=== PATIENT | female | born 1950 | race Caucasian/White ===

== ENCOUNTER 2017-01-23 00:53 | Observation (INO) | payer MEDICARE ==
[~2017-01-23] VITALS: Ht 170.2 cm; Wt 73.0 kg
[2017-01-23] VITALS (12 sets, daily range): BP systolic 119–216; BP diastolic 56–97; PULSE 66–86; RESP 15–22; TEMP 97.9–98.8; O2SAT 95–100
[2017-01-23] MEDS ORDERED: ASPI81CH37 CHEW (01:06)
[2017-01-23] MEDS ORDERED: CYCL1TAB29 PO (01:11)
[2017-01-23] MEDS ORDERED: MELO7.5T4 PO (01:11)
[2017-01-23] MEDS ORDERED: METF1000 PO (01:11)
[2017-01-23] MEDS ORDERED: LOSA100T3 PO (01:11)
[2017-01-23] MEDS ORDERED: GLIP5TAB8 PO (01:11)
[2017-01-23] MEDS ORDERED: CARV25TA PO (01:11)
[2017-01-23] MEDS ORDERED: LEVO100T5 PO (01:11)
[2017-01-23] MEDS ORDERED: OMEP20TA PO (01:11)
[2017-01-23] MEDS ORDERED: CELE40TA PO (01:11)
[2017-01-23] MEDS ORDERED: LEVEMIR SQ (01:11)
[2017-01-23] MEDS ORDERED: hydrALAZINE HCL 20 MG/ML VIAL IV PUSH ONE (01:30)
[2017-01-23] MEDS ORDERED: SODIUM CHLORIDE 0.9% FLUSH 10 ML FLUSH IVF PRN (01:30)
[2017-01-23] MEDS ORDERED: ASPIRIN 81 MG CHEW TAB PO ONE (01:30)
[2017-01-23] MEDS: NITROGLYCERIN 0.4 MG SL 25 TABS/BTL SL SCH ×3 (01:40→02:00)
[2017-01-23 01:53] LABS: AUTOMATED NEUTROPHIL # 3.9 TH/MM3 (1.8-7.7); BASOPHIL # 0.1 TH/MM3 (0-0.2); BASOPHIL % 0.9 % (0.0-2.0); EOSINOPHIL # 0.2 TH/MM3 (0-0.4); EOSINOPHIL % 2.7 % (0.0-4.0); HEMATOCRIT 36.2 % (35.0-46.0); HEMO FLAGS DIFF FINAL; LYMPH % 28.2 % (9.0-44.0); LYMPHOCYTE # 1.9 TH/MM3 (1.0-4.8); MEAN CELL VOLUME 83.2 FL (80.0-100.0); MEAN CORPUSCULAR HEMOGLOBIN 29.3 PG (27.0-34.0); MEAN CORPUSCULAR HGB CONC 35.2 % (32.0-36.0); MONO % 11.2 % (0.0-8.0); PLATELET COUNT 239 TH/MM3 (150-450); RED BLOOD COUNT 4.36 MIL/MM3 (4.00-5.30); RED CELL DISTRIBUTION WIDTH 14.7 % (11.6-17.2); WHITE BLOOD COUNT 6.8 TH/MM3 (4.0-11.0)
--- NOTE | 2017-01-23 02:00 | RADRPT ---
EXAM DATE/TIME: 01/23/2017 01:35 [place] COMPARISON: No previous studies available for comparison. INDICATIONS : LEFT SIDE CHEST AND ARM PAIN RADIATING TO JAW X 3 DAYS. MEDICAL HISTORY : Hypertension. Hypercholesterolemia. Diabetes mellitus type II. SURGICAL HISTORY : Thyroidectomy ENCOUNTER: Initial ACUITY: 3 days PAIN SCORE: 8/10 LOCATION: Bilateral chest FINDINGS: A single view of the chest demonstrates the lungs to be symmetrically aerated without evidence of mas s, infiltrate or effusion. The cardiomediastinal contours are unremarkable. Osseous structures are intact. CONCLUSION: No acute disease. Niranjan Black MD on January 23, 2017 at 1:57 Board Certified Radiologist. This report was verified electronically.
[2017-01-23 02:31] LABS: APTT (PATIENT) 24.9 SEC (24.3-30.1); INTERNATIONAL NORMALIZED RATIO 0.9 RATIO; PROTHROMBIN TIME - PATIENT 10.3 SEC (9.8-11.6)
[2017-01-23 03:00] LABS: ALT (GPT) 36 U/L (10-53); ANION GAP 11 MEQ/L (5-15); AST (GOT) 24 U/L (15-37); BICARBONATE 27.4 MEQ/L (21.0-32.0); BLOOD UREA NITROGEN 13 MG/DL (7-18); CHLORIDE 100 MEQ/L (98-107); GLOMERULAR FILTRATION RATE 75 ML/MIN (>89); MAGNESIUM 1.8 MG/DL (1.5-2.5); POTASSIUM 3.5 MEQ/L (3.5-5.1); SODIUM (NA) 138 MEQ/L (136-145)
[2017-01-23 03:01] LABS: ALKALINE PHOSPHATASE 115 U/L (45-117); CREATINE KINASE 102 U/L (26-192); TOTAL BILIRUBIN ADULT 0.3 MG/DL (0.2-1.0)
[2017-01-23] MEDS ORDERED: INSULIN HUMAN REGULAR 1,000 UNITS/10 ML VIAL SQ ONE (03:30)
--- NOTE | 2017-01-23 03:33 | PD ---
HPI Chief Complaint: Chest Pain Time Seen by Provider: 01:30 Travel History International Travel<30 days: No Contact w/Intl Traveler<30days: No Traveled to known affect area: No History of Present Illness HPI Patient is a 66-year-old female with history of hypertension, diabetes, presents to emergency room complaints of chest pain. Reports that she has had left-sided chest pain which radiates her arm and her jaw, reports the chest pain is sharp and stabbing in nature. Patient reports that she is feeling nauseous this with no vomiting. Denies any shortness of breath. Patient also reports that she does have history of hypertension and is on multiple medications, she did not take any of her medications today. PFSH Past Medical History Cardiac Catheterization: Yes (X2) Cardiovascular Problems: Yes High Cholesterol: Yes Diabetes: Yes Patient Takes Glucophage: Yes (01/22/17) Hypertension: Yes Thyroid Disease: Yes Triglycerides - High: Yes Tetanus Vaccination: < 5 Years Influenza Vaccination: Yes ?: Not Menopausal: Yes : 4 Para: 4 Past Surgical History Eye Surgery: Yes (BILATERAL CATARACTS) Oral Surgery: Yes (JAW) Other Surgery: Yes (PARTIAL THYRIOIDECTOMY) Social History Alcohol Use: No Tobacco Use: No Substance Use: No Allergies-Medications (Allergen,Severity, Reaction): Coded Allergies: Penicillin (Verified Allergy, Unknown, 01/23/17) Reported Meds & Prescriptions Reported Meds & Active Scripts Active Reported Levemir Inj (Insulin Detemir) 1,000 unit/ 10 ML Vial 50 Units SQ HS Do not mix with any other Insulin. Carvedilol 25 Mg Tab 25 Mg PO BID Flexeril (Cyclobenzaprine HCl) 10 Mg Tab 10 Mg PO BID Omeprazole 20 Mg Tab 20 Mg PO BID Losartan-Hydrochlorothiazide 100-12.5 Mg Tab 1 Tab PO DAILY Levothyroxine (Levothyroxine Sodium) 100 Mcg Tab 100 Mcg PO DAILY Glipizide 5 Mg Tab 5 Mg PO BIDAC Take 30 minutes before a meal Celexa (Citalopram Hydrobromide) 40 Mg Tab 40 Mg PO DAILY Metformin (Metformin HCl) 1,000 Mg Tab 1,000 Mg PO BIDPC With meals Aspirin Low Dose (Aspirin) 81 Mg Chew 81 Mg CHEW DAILY Review of Systems General / Constitutional: No: Fever Eyes: No: Visual changes HENT: No: Headaches Cardiovascular: Positive: Chest Pain or Discomfort Respiratory: No: Shortness of Breath Gastrointestinal: No: Abdominal Pain Genitourinary: No: Dysuria Musculoskeletal: No: Pain Skin: No Rash Neurologic: No: Weakness Psychiatric: No: Depression Endocrine: No: Polydipsia Hematologic/Lymphatic: No: Easy Bruising Physical Exam Narrative GENERAL: No acute distress, nontoxic SKIN: Focused skin assessment warm/dry. HEAD: Atraumatic. Normocephalic. EYES: Pupils equal and round. No scleral icterus. No injection or drainage. ENT: No nasal bleeding or discharge. Mucous membranes pink and moist. NECK: Trachea midline. No JVD. CARDIOVASCULAR: Regular rate and rhythm. No murmur appreciated. RESPIRATORY: No accessory muscle use. Clear to auscultation. Breath sounds equal bilaterally. GASTROINTESTINAL: Abdomen soft, non-tender, nondistended. Hepatic and splenic margins not palpable. MUSCULOSKELETAL: No obvious deformities. No clubbing. No cyanosis. No edema. NEUROLOGICAL: Awake and alert. No obvious cranial nerve deficits. Motor grossly within normal limits. Normal speech. PSYCHIATRIC: Appropriate mood and affect; insight and judgment normal. Data Data Last Documented VS Vital Signs Date Time Temp Pulse Resp B/P Pulse Ox O2 Delivery O2 Flow Rate FiO2 01/23/17 03:00 70 18 147/68 100 Room Air 01/23/17 01:00 98.8 Orders Ckmb (Isoenzyme) Profile (01/23/17 01:30) Complete Blood Count With Diff (01/23/17 01:30) Comprehensive Metabolic Panel (01/23/17 01:30) D-Dimer (01/23/17 01:30) Magnesium (Mg) (01/23/17 01:30) Prothrombin Time / Inr (Pt) (01/23/17 01:30) Act Partial Throm Time (Ptt) (01/23/17 01:30) Troponin I (01/23/17 01:30) Lipase (01/23/17 01:30) Chest, Single Ap (01/23/17 01:30) Ecg Monitoring (01/23/17 01:30) Iv Access Insert/Monitor (01/23/17 01:30) Oximetry (01/23/17 01:30) Aspirin Chew (Aspirin Chew) (01/23/17 01:30) Sodium Chloride 0.9% Flush (Ns Flush) (01/23/17 01:30) Nitroglycerin Sl (Nitrostat Sl) (01/23/17 01:30) Hydralazine Inj (Apresoline Inj) (01/23/17 01:30) CKMB (01/23/17 01:21) CKMB% (01/23/17 01:21) Labs Laboratory Tests Test 01/23/17 01:21 White Blood Count 6.8 TH/MM3 Red Blood Count 4.36 MIL/MM3 Hemoglobin 12.8 GM/DL Hematocrit 36.2 % Mean Corpuscular Volume 83.2 FL Mean Corpuscular Hemoglobin 29.3 PG Mean Corpuscular Hemoglobin 35.2 % Concent Red Cell Distribution Width 14.7 % Platelet Count 239 TH/MM3 Mean Platelet Volume 8.9 FL Neutrophils (%) (Auto) 57.0 % Lymphocytes (%) (Auto) 28.2 % Monocytes (%) (Auto) 11.2 % Eosinophils (%) (Auto) 2.7 % Basophils (%) (Auto) 0.9 % Neutrophils # (Auto) 3.9 TH/MM3 Lymphocytes # (Auto) 1.9 TH/MM3 Monocytes # (Auto) 0.8 TH/MM3 Eosinophils # (Auto) 0.2 TH/MM3 Basophils # (Auto) 0.1 TH/MM3 CBC Comment DIFF FINAL Differential Comment Prothrombin Time 10.3 SEC Prothromb Time International 0.9 RATIO Ratio Activated Partial 24.9 SEC Thromboplast Time D-Dimer Quantitative (PE/DVT) 0.44 MG/L FEU Sodium Level 138 MEQ/L Potassium Level 3.5 MEQ/L Chloride Level 100 MEQ/L Carbon Dioxide Level 27.4 MEQ/L Anion Gap 11 MEQ/L Blood Urea Nitrogen 13 MG/DL Creatinine 0.77 MG/DL Estimat Glomerular Filtration 75 ML/MIN Rate Random Glucose 300 MG/DL Calcium Level 8.8 MG/DL Magnesium Level 1.8 MG/DL Total Bilirubin 0.3 MG/DL Aspartate Amino Transf 24 U/L (AST/SGOT) Alanine Aminotransferase 36 U/L (ALT/SGPT) Alkaline Phosphatase 115 U/L Total Creatine Kinase 102 U/L Creatine Kinase MB 1.0 NG/ML Troponin I LESS THAN 0.02 NG/ML Total Protein 7.4 GM/DL Albumin 3.6 GM/DL Lipase 140 U/L [facility] Medical Decision Making Medical Screen Exam Complete: Yes Emergency Medical Condition: Yes Interpretation(s) NSR at 77bpm, qt/qtc: 395/426, no acute st or t wave changes Vital Signs Date Time Temp Pulse Resp B/P Pulse Ox O2 Delivery O2 Flow Rate FiO2 01/23/17 03:00 70 18 147/68 100 Room Air 01/23/17 02:14 20 01/23/17 02:10 82 17 140/72 98 Room Air 01/23/17 02:00 84 15 139/69 97 Room Air 01/23/17 01:55 86 16 151/71 96 Room Air 01/23/17 01:49 70 20 173/85 96 Room Air 01/23/17 01:41 20 98 Room Air 01/23/17 01:25 Room Air 01/23/17 01:00 98.8 75 22 216/97 95 Differential Diagnosis Differential includes ACS, arrhythmia, PE, costochondritis, electrolyte abnormality Narrative Course Patient is a 66 year old female who presents to ER with c/o of chest pain Patient was placed on classroom monitor upon arrival to ER. SL nitro given to patient. ASA given. chest x ray ordered Vital Signs Date Time Temp Pulse Resp B/P Pulse Ox O2 Delivery O2 Flow Rate FiO2 01/23/17 03:00 70 18 147/68 100 Room Air 01/23/17 02:14 20 01/23/17 02:10 82 17 140/72 98 Room Air 01/23/17 02:00 84 15 139/69 97 Room Air 01/23/17 01:55 86 16 151/71 96 Room Air 01/23/17 01:49 70 20 173/85 96 Room Air 01/23/17 01:41 20 98 Room Air 01/23/17 01:25 Room Air 01/23/17 01:00 98.8 75 22 216/97 95 Laboratory Tests Test 01/23/17 01:21 White Blood Count 6.8 TH/MM3 (4.0-11.0) Red Blood Count 4.36 MIL/MM3 (4.00-5.30) Hemoglobin 12.8 GM/DL (11.6-15.3) Hematocrit 36.2 % (35.0-46.0) Mean Corpuscular Volume 83.2 FL (80.0-100.0) Mean Corpuscular Hemoglobin 29.3 PG (27.0-34.0) Mean Corpuscular Hemoglobin 35.2 % Concent (32.0-36.0) Red Cell Distribution Width 14.7 % (11.6-17.2) Platelet Count 239 TH/MM3 (150-450) Mean Platelet Volume 8.9 FL (7.0-11.0) Neutrophils (%) (Auto) 57.0 % (16.0-70.0) Lymphocytes (%) (Auto) 28.2 % (9.0-44.0) Monocytes (%) (Auto) 11.2 % (0.0-8.0) Eosinophils (%) (Auto) 2.7 % (0.0-4.0) Basophils (%) (Auto) 0.9 % (0.0-2.0) Neutrophils # (Auto) 3.9 TH/MM3 (1.8-7.7) Lymphocytes # (Auto) 1.9 TH/MM3 (1.0-4.8) Monocytes # (Auto) 0.8 TH/MM3 (0-0.9) Eosinophils # (Auto) 0.2 TH/MM3 (0-0.4) Basophils # (Auto) 0.1 TH/MM3 (0-0.2) CBC Comment DIFF FINAL Differential Comment Prothrombin Time 10.3 SEC (9.8-11.6) Prothromb Time International 0.9 RATIO Ratio Activated Partial 24.9 SEC Thromboplast Time (24.3-30.1) D-Dimer Quantitative (PE/DVT) 0.44 MG/L FEU (0.00-0.50) Sodium Level 138 MEQ/L (136-145) Potassium Level 3.5 MEQ/L (3.5-5.1) Chloride Level 100 MEQ/L (98-107) Carbon Dioxide Level 27.4 MEQ/L (21.0-32.0) Anion Gap 11 MEQ/L (5-15) Blood Urea Nitrogen 13 MG/DL (7-18) Creatinine 0.77 MG/DL (0.50-1.00) Estimat Glomerular Filtration 75 ML/MIN (>89) Rate Random Glucose 300 MG/DL (74-106) Calcium Level 8.8 MG/DL (8.5-10.1) Magnesium Level 1.8 MG/DL (1.5-2.5) Total Bilirubin 0.3 MG/DL (0.2-1.0) Aspartate Amino Transf 24 U/L (15-37) (AST/SGOT) Alanine Aminotransferase 36 U/L (10-53) (ALT/SGPT) Alkaline Phosphatase 115 U/L (45-117) Total Creatine Kinase 102 U/L (26-192) Creatine Kinase MB 1.0 NG/ML (0.5-3.6) Troponin I LESS THAN 0.02 NG/ML (0.02-0.05) Total Protein 7.4 GM/DL (6.4-8.2) Albumin 3.6 GM/DL (3.4-5.0) Lipase 140 U/L (73-393) Patient presents the emergency room with blood pressure of 216/97 - patient was given a dose of hydralazine. She has not taken any of her medications for htn or dm today. BP now 147/68. Plan to admit to chest pain unit Diagnosis Primary Impression: Chest pain Qualified Code: R07.9 - Chest pain, unspecified type Admitting Information Admitting Physician Requests: Observation Andreea Dean DO Jan 23, 2017 03:33
[2017-01-23 06:22] LABS: CREATINE KINASE 89 U/L (26-192)
[2017-01-23] MEDS ORDERED: SODIUM CHLORIDE 0.9% FLUSH 10 ML FLUSH IV FLUSH SCH (09:00)
[2017-01-23 09:21] LABS: CREATINE KINASE 83 U/L (26-192)
[2017-01-23] MEDS ORDERED: CARVEDILOL 12.5 MG TAB PO SCH (10:15)
[2017-01-23] MEDS ORDERED: GLUCAGON 1 MG/ML VIAL IM/SQ PRN (10:15)
[2017-01-23] MEDS ORDERED: CYCLOBENZAPRINE HCL 10 MG TAB PO SCH (10:15)
[2017-01-23] MEDS ORDERED: LEVOTHYROXINE SODIUM 100 MCG TAB PO SCH (10:15)
[2017-01-23] MEDS ORDERED: DEXTROSE 50% IN WATER 50 ML VIAL(D50) IV PRN (10:15)
[2017-01-23] MEDS ORDERED: NON-FORMULARY DRUG (Losartan-Hydrochlorothiazide 1 TAB) PO SCH (10:15)
--- NOTE | 2017-01-23 10:39 | HHI.HP ---
HPI Primary Care Physician Non-Staff Chief Complaint Chest pain History of Present Illness This is a 66-year-old female that presents to the ED with a complaint of a left- sided arm pain that was constant for 2-3 days. She found nothing that really worsen the symptoms. However yesterday she began having a left-sided jaw pain that was not worsened with opening and closing of her mouth and checked her blood pressure and it was high. Is concerned her so she came to the hospital. The jaw pain remained until she was given medicine in the ER to bring her blood pressure down. Denies history of heart disease. She in fact states that she had a heart catheterization in 1995 and in 1997 while in [place] and she was told that both were clear. 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 She recently moved here from [place] has a primary care physician. She did not take her medications yesterday. Denies recent illness. Denies fevers or chills. Review of Systems General: Patient denies fevers, chills recent, and recent travel HEENT: Patient denies headache, sore throat, difficulty swallowing. Cardiovascular: Denies chest pain. Is complaining of left jaw pain and left arm pain. Denies sensation of heart beating rapidly or irregularly. No syncope. She was diaphoretic a couple times. Respiratory: Denies shortness of breath or inspirational chest discomfort. Denies coughing wheezing or hemoptysis. GI: She was a little nauseous initially. Patient denies vomiting, diarrhea, abdominal pain, bloody stools. Musculoskeletal: Patient denies joint pain or edema. Denies calf pain or edema. Neurovascular: Patient denies numbness, tingling, weakness in extremities. Denies headache. Endocrine: Denies polyuria and polydipsia. Hematologic: Denies easy bruising. Skin: Denies rash or itching. Past Family Social History Allergies: Coded Allergies: Penicillin (Verified Allergy, Unknown, 01/23/17) Past Medical History Hypertension, hyperlipidemia, diabetes, hyperthyroidism. Denies known coronary artery disease. In fact patient states she had 2 heart catheterizations in and the other 1997 she states that she was told that both were clear. Past Surgical History She has had 2 cardiac catheterizations were interventions. Partial thyroidectomy, bilateral cataracts, mandibular surgery for TMJ. Reported Medications Reported Meds & Active Scripts Active Reported Levemir Inj (Insulin Detemir) 1,000 unit/ 10 ML Vial 50 Units SQ HS Do not mix with any other Insulin. Carvedilol 25 Mg Tab 25 Mg PO BID Flexeril (Cyclobenzaprine HCl) 10 Mg Tab 10 Mg PO BID Omeprazole 20 Mg Tab 20 Mg PO BID Losartan-Hydrochlorothiazide 100-12.5 Mg Tab 1 Tab PO DAILY Levothyroxine (Levothyroxine Sodium) 100 Mcg Tab 100 Mcg PO DAILY Glipizide 5 Mg Tab 5 Mg PO BIDAC Take 30 minutes before a meal Celexa (Citalopram Hydrobromide) 40 Mg Tab 40 Mg PO DAILY Metformin (Metformin HCl) 1,000 Mg Tab 1,000 Mg PO BIDPC With meals Aspirin Low Dose (Aspirin) 81 Mg Chew 81 Mg CHEW DAILY Active Ordered Medications Current Medications Medications (Trade) Dose Ordered Sig/Lida Route Start Time Stop Time Status Last Admin (NS Flush) 2 ml UNSCH PRN IVF 01/23/17 01:30 (NS Flush) 2 ml BID IV FLUSH 01/23/17 09:00 01/23/17 08:28 (Coreg) 25 mg BID PO 01/23/17 10:15 (CeleXA) 40 mg DAILY PO 01/24/17 09:00 (Flexeril) 10 mg BID PO 01/23/17 10:15 (Synthroid) 100 mcg DAILY@0600 PO 01/23/17 10:15 (D50w (Vial) Inj) 25 ml UNSCH PRN IV 01/23/17 10:15 (Glucagon Inj) 1 mg UNSCH PRN IM/SQ 01/23/17 10:15 (Cozaar) 100 mg DAILY PO 01/23/17 11:00 (Microzide) 12.5 mg DAILY PO 01/23/17 11:00 Family History There is family history of CAD. Social History Patient is a nonsmoker. Denies alcohol or illicit drugs. Physical Exam Vital Signs Vital Signs Date Time Temp Pulse Resp B/P Pulse Ox O2 Delivery O2 Flow Rate FiO2 01/23/17 07:49 66 01/23/17 07:17 98.4 67 18 128/60 97 01/23/17 06:10 97.9 75 18 124/60 96 01/23/17 05:23 98 01/23/17 04:00 66 17 119/56 99 Room Air 01/23/17 03:00 70 18 147/68 100 Room Air 01/23/17 02:14 20 01/23/17 02:10 82 17 140/72 98 Room Air 01/23/17 02:00 84 15 139/69 97 Room Air 01/23/17 01:55 86 16 151/71 96 Room Air 01/23/17 01:49 70 20 173/85 96 Room Air 01/23/17 01:41 20 98 Room Air 01/23/17 01:25 Room Air 01/23/17 01:00 98.8 75 22 216/97 95 Physical Exam GENERAL: This is a well-nourished, well-developed patient, in no apparent distress. Patient speaks in clear complete sentences. Patient is pleasant. HEENT: Head is atraumatic and normocephalic. Neck is supple without lymphadenopathy and trachea is midline. No JVD or carotid bruits. CARDIOVASCULAR: Grade 2 systolic murmur left sternal border. Regular rate and rhythm without gallops or rubs. RESPIRATORY: Clear to auscultation. Breath sounds equal bilaterally. No wheezes , rales, or rhonchi. Chest wall is nontender. No use of accessory muscles. GASTROINTESTINAL: Abdomen is nontender, nondistended. Abdomen soft. No obvious pulsatile mass or bruit. No CVA tenderness. Strong femoral pulses bilaterally. Normal bowel sounds in all quadrants. MUSCULOSKELETAL: Patient is moving upper and lower extremities freely. No calf tenderness or edema, no Homans sign. Strong pulses in upper and lower extremities. NEUROLOGICAL: Patient is alert and oriented. Cranial nerves 2-12 are grossly intact. No focal deficits and speech is clear. SKIN: No rash and turgor is normal. Laboratory Laboratory Tests Test 01/23/17 01/23/17 01/23/17 01:21 05:30 08:25 White Blood Count 6.8 Red Blood Count 4.36 Hemoglobin 12.8 Hematocrit 36.2 Mean Corpuscular Volume 83.2 Mean Corpuscular Hemoglobin 29.3 Mean Corpuscular Hemoglobin 35.2 Concent Red Cell Distribution Width 14.7 Platelet Count 239 Mean Platelet Volume 8.9 Neutrophils (%) (Auto) 57.0 Lymphocytes (%) (Auto) 28.2 Monocytes (%) (Auto) 11.2 Eosinophils (%) (Auto) 2.7 Basophils (%) (Auto) 0.9 Neutrophils # (Auto) 3.9 Lymphocytes # (Auto) 1.9 Monocytes # (Auto) 0.8 Eosinophils # (Auto) 0.2 Basophils # (Auto) 0.1 CBC Comment DIFF FINAL Differential Comment Prothrombin Time 10.3 Prothromb Time International 0.9 Ratio Activated Partial 24.9 Thromboplast Time D-Dimer Quantitative (PE/DVT) 0.44 Sodium Level 138 Potassium Level 3.5 Chloride Level 100 Carbon Dioxide Level 27.4 Anion Gap 11 Blood Urea Nitrogen 13 Creatinine 0.77 Estimat Glomerular Filtration 75 Rate Random Glucose 300 Calcium Level 8.8 Magnesium Level 1.8 Total Bilirubin 0.3 Aspartate Amino Transf 24 (AST/SGOT) Alanine Aminotransferase 36 (ALT/SGPT) Alkaline Phosphatase 115 Total Creatine Kinase 102 89 83 Creatine Kinase MB 1.0 Troponin I LESS THAN 0.02 LESS THAN 0.02 LESS THAN 0.02 Total Protein 7.4 Albumin 3.6 Lipase 140 Result Diagram: 01/23/1712001/23/17120 Imaging Last 24 hours Impressions Chest X-Ray 01/23/17129 Signed Impressions: Service Date/Time: Wednesday, January 23, 2017 01:35 - CONCLUSION: No acute disease. Niranjan Black MD Course EKGs have been sinus rhythm without significant ST segment depressions or elevations. Assessment and Plan Assessment and Plan * Atypical chest pain: Patient has had serial cardiac enzymes and EKGs for ruling out purposes. She will be seen by Dr. Pozo of cardiology and the chest pain center and likely have a Hao protocol ETT. She will likely be discharged home if the stress test is nonischemic. She will need to follow-up with local primary care physician. * Hypertension: Continue current medication. * Hyperlipidemia: Continue current medication. * Diabetes: She'll be on sliding scale insulin coverage while in the chest pain center. She is follow diabetic diet and resume her medication at discharge. * Hypothyroidism: Continue current medication. Patient is stable at this time. She is agreeable to this plan. Terrell Buenrostro Jan 23, 2017 10:39
[2017-01-23] MEDS ORDERED: LOSARTAN 50 MG TAB PO SCH (11:00)
[2017-01-23] MEDS ORDERED: HYDROCHLOROTHIAZIDE 12.5 MG CAP PO SCH (11:00)
[2017-01-23] MEDS ORDERED: INSULIN ASPART SUPPLEMENTAL SCALE SQ SCH (11:00)
--- NOTE | 2017-01-23 11:26 | TR ---
Date Performed: 01/23/2017 Time Performed: 10:49:41 DOCTOR: Ilir Pozo DRUG LIST: CLINICAL HISTORY: REASON FOR TEST: Chest pain REASON FOR ENDING: OBSERVATION: CONCLUSION: HECTOR PROTOCOL. NO CP. TEST STOPPED DUE TO SOB AND LEG FATIGUE. DID HAVE SOME JAW DI SCOMFORT. Maximum WT=640 % Max HR Achieved=91.0% Maximum DB=874/92 Total Exercise Time=9:00 COMMENTS: Conclusion: Normal treadmill exercise. No evidence of ischemia.
--- NOTE | 2017-01-23 11:43 | HHI.DCPOC ---
Discharge Care Plan Diagnosis: (1) Chest pain, atypical (2) Hypertension (3) DM (diabetes mellitus) (4) Hyperlipidemia (5) Hypothyroidism Goals to Promote Your Health * To prevent worsening of your condition and complications * To maintain your health at the optimal level Directions to Meet Your Goals Take your medications as prescribed Follow your dietary instruction Follow activity as directed Keep your appointments as scheduled Take your immunizations and boosters as scheduled If your symptoms worsen call your PCP, if no PCP go to Urgent Care Center or Emergency Room Smoking is Dangerous to Your Health. Avoid second hand smoke Call the 24-hour hour crisis hotline for domestic abuse at Terrell Buenrostro Jan 23, 2017 11:43
--- NOTE | 2017-01-23 15:00 | EKG ---
Date Performed: 01/23/2017 Time Performed: 07:31:51 PTAGE: 66 years EKG: Sinus rhythm Normal ECG PREVIOUS TRACING : 01/23/2017 05.28 Since previous tracing, no significant change noted DOCTOR: Ilir Pozo Interpretating Date/Time 01/23/2017 14:59:11
--- NOTE | 2017-01-23 15:08 | EKG ---
Date Performed: 01/23/2017 Time Performed: 05:28:58 PTAGE: 66 years EKG: Sinus rhythm Normal ECG PREVIOUS TRACING : 01/23/2017 01.23 Since previous tracing, no significant change noted DOCTOR: Ilir Pozo Interpretating Date/Time 01/23/2017 15:06:38
--- NOTE | 2017-01-23 15:13 | EKG ---
Date Performed: 01/23/2017 Time Performed: 01:23:47 PTAGE: 66 years EKG: Sinus rhythm Normal ECG PREVIOUS TRACING : 01/23/2017 01.06 Since previous tracing, no significant change noted DOCTOR: Ilir Pozo Interpretating Date/Time 01/23/2017 15:12:23
[2017-01-24] MEDS ORDERED: CITALOPRAM HYDROBROMIDE 40 MG TAB PO SCH (09:00)
== END 2017-01-23 12:51 | disposition home or self-care (01) ==
LOC: NEPC 00:53 → NEDA 03:36 → NEPGCP 05:58
PROVIDERS: ADMIT Internal Medicine Cardiovascular Disease; ATTEND Internal Medicine Cardiovascular Disease
DX: R07.89 Other chest pain (principal); I10 Essential (primary) hypertension; E11.9 Type 2 diabetes mellitus without complications; E03.9 Hypothyroidism, unspecified; E78.5 Hyperlipidemia, unspecified; Z79.899 Other long term (current) drug therapy; Z79.82 Long term (current) use of aspirin; Z79.84 Long term (current) use of oral hypoglycemic drugs; E78.1 Pure hyperglyceridemia
CPT/HCPCS: 71010; 80053; 82550; 82552; 82948; 83690; 83735; 84484; 85025; 85379; 85610; 85730; 93005; 93017; 96374; 99285; G0378; J0360; J1815

== ENCOUNTER 2017-12-17 17:36 | Inpatient (IN) | payer OTHER, MEDICARE ==
[~2017-12-17] VITALS: Ht 172.7 cm; Wt 75.0 kg
[~2017-12-17 17:36] MED LIST: ASPI81CH6 CHEW; CARV25TA PO; CELE40TA PO; CYCL10TA PO; GLIP5TAB8 PO; LEVEMIR SQ; LEVO100T5 PO; LOSA100T3 PO; METF1000 PO; OMEP20TA93 PO
[2017-12-17 17:43] VITALS: BP 163/73; PULSE 117; RESP 22; TEMP 102.8; O2SAT 65; O2SAT 95
[2017-12-17 18:09] VITALS: BP 166/61; PULSE 123; RESP 26; O2SAT 95
[2017-12-17 18:51] VITALS: TEMP 102.7
--- NOTE | 2017-12-17 18:55 | PD ---
HPI Chief Complaint: Fever Time Seen by Provider: 18:16 Travel History International Travel<30 days: No Contact w/Intl Traveler<30days: No Traveled to known affect area: No History of Present Illness HPI The patient was seen and examined in the presence of the nurse. This patient complains of fever. Started yesterday. Duration 24 hours. Severity is moderate. She is got a bit of nasal congestion and a rare cough. No diarrhea. She has had nausea and vomiting. She has some left lower quadrant pain and to a lesser degree right lower quadrant pain. No urinary complaints. No alleviating factors. No exacerbating factors. PFSH Past Medical History Heart Rhythm Problems: No Cardiac Catheterization: Yes (1995,1997) Cardiovascular Problems: Yes High Cholesterol: No Congestive Heart Failure: No Diabetes: Yes Patient Takes Glucophage: No Diminished Hearing: No Hypertension: Yes Thyroid Disease: Yes Triglycerides - High: Yes ?: Not Menopausal: Yes : 4 Para: 4 Past Surgical History Coronary Artery Bypass Graft: No Eye Surgery: Yes (BILATERAL CATARACTS) Oral Surgery: Yes (JAW) Other Surgery: Yes (PARTIAL THYRIOIDECTOMY) Family History Family Myocardial Infarction: Yes (father and mother) Social History Alcohol Use: No Tobacco Use: No Substance Use: No Allergies-Medications (Allergen,Severity, Reaction): Coded Allergies: penicillin G (Unverified Allergy, Unknown, 12/17/17) Reported Meds & Prescriptions Reported Meds & Active Scripts Active Reported Levemir Inj (Insulin Detemir) 1,000 unit/ 10 ML Vial 40 Units SQ HS 40 UNITS IN THE MORNING AND 35 IN THE EVENING Carvedilol 25 Mg Tab 25 Mg PO BID Flexeril (Cyclobenzaprine HCl) 10 Mg Tab 10 Mg PO BID Omeprazole 20 Mg Tab 20 Mg PO BID Losartan-Hydrochlorothiazide 100-12.5 Mg Tab 1 Tab PO DAILY Levothyroxine (Levothyroxine Sodium) 100 Mcg Tab 100 Mcg PO DAILY Glipizide 5 Mg Tab 5 Mg PO BIDAC Take 30 minutes before a meal Celexa (Citalopram Hydrobromide) 40 Mg Tab 40 Mg PO DAILY Aspirin Low Dose (Aspirin) 81 Mg Chew 81 Mg CHEW DAILY Review of Systems General / Constitutional: Positive: Fever, Chills Eyes: No: Visual changes HENT: No: Headaches Cardiovascular: No: Chest Pain or Discomfort Respiratory: No: Shortness of Breath Gastrointestinal: Positive: Nausea, Vomiting, Abdominal Pain Genitourinary: No: Dysuria Musculoskeletal: No: Pain Skin: No Rash Neurologic: No: Weakness Psychiatric: No: Depression Endocrine: No: Polydipsia Hematologic/Lymphatic: No: Easy Bruising Physical Exam Narrative GENERAL: Well-nourished, well-developed patient in no apparent distress. SKIN: Focused skin assessment reveals no rash and nodules. Skin is Warm and dry. HEAD: Atraumatic. Normocephalic. EYES: Pupils equal and round. No scleral icterus. No injection or drainage. ENT: No nasal bleeding or discharge. Mucous membranes pink and moist. Clear nasal discharge NECK: Trachea midline. No JVD. No meningeal signs CARDIOVASCULAR: Regular rate and rhythm. No murmur appreciated. RESPIRATORY: No accessory muscle use. Clear to auscultation. Breath sounds equal bilaterally. GASTROINTESTINAL: Abdomen soft, mild left lower quadrant tenderness without rebound or guarding, nondistended. Hepatic and splenic margins not palpable. MUSCULOSKELETAL: No obvious deformities. No clubbing. No cyanosis. No edema. NEUROLOGICAL: Awake and alert. No obvious cranial nerve deficits. Motor grossly within normal limits. Normal speech. PSYCHIATRIC: Appropriate mood and affect; insight and judgment normal. Data Data Last Documented VS Vital Signs Date Time Temp Pulse Resp B/P (MAP) Pulse Ox O2 Delivery O2 Flow Rate FiO2 12/17/17 18:51 102.7 12/17/17 18:09 123 26 95 Room Air Orders Orders Acetaminophen Supp (Tylenol Supp) (12/17/17 19:00) Acetaminophen Supp (Tylenol Supp) (12/17/17 19:00) Ns 1000ml Wide Open 2000 Ml/Hr (12/17/17 19:00) Chest, Single Ap (12/17/17 ) Urinalysis - C+S If Indicated (12/17/17 18:51) Cath For Specimen (12/17/17 18:51) Blood Culture (12/17/17 18:51) Lactic Acid (12/17/17 18:51) MDM Medical Decision Making Medical Screen Exam Complete: Yes Emergency Medical Condition: Yes Medical Record Reviewed: Yes Differential Diagnosis Colitis, diverticulitis, appendicitis, pyelonephritis Narrative Course I have reviewed the patient's electronic medical record. I have ordered a infectious type workup. Case checked out to the evening physician to assist with disposition. We will give a dose of Zosyn after cultures drawn. Abdominal imaging ordered Deon Cervantes MD Dec 17, 2017 18:55
[2017-12-17] MEDS ORDERED: ACETAMINOPHEN 325 MG SUPP RECTAL ONE (19:00)
[2017-12-17] MEDS ORDERED: metroNIDAZOLE 500 MG INJ 100 ML IV ONE (19:00)
[2017-12-17] MEDS ORDERED: LEVOFLOXACIN 750 MG PREMIX INJ 150 ML IV ONE (19:00)
[2017-12-17] MEDS ORDERED: ACETAMINOPHEN 650 MG SUPP RECTAL ONE (19:00)
[2017-12-17] MEDS ORDERED: SODIUM CHLOR 0.9% 1000 ML INJ 1,000 ML IV ONE (19:00)
[2017-12-17 19:29] LABS: AMORPHOUS SEDIMENT, URINE RARE; BACTERIA, URINE MANY /hpf; BILIRUBIN, URINE NEG (NEG); BLOOD, URINE MOD (NEG); GLUCOSE,URINE >=500 mg/dL (NEG); HYALINE CAST, URINE 2 /lpf (RARE); KETONE, URINE NEG (NEG); NITRITE,URINE POS (NEG); URINE COLOR YELLOW (YELLW/STRAW); URINE LEUKOCYTE ESTERASE NEG (NEG)
--- NOTE | 2017-12-17 19:36 | PD ---
Data Data Last Documented VS Vital Signs Date Time Temp Pulse Resp B/P (MAP) Pulse Ox O2 Delivery O2 Flow Rate FiO2 12/17/17 18:51 102.7 12/17/17 18:09 123 26 95 Room Air Orders Orders Acetaminophen Supp (Tylenol Supp) (12/17/17 19:00) Acetaminophen Supp (Tylenol Supp) (12/17/17 19:00) Sodium Chlor 0.9% 1000 Ml Inj (Ns 1000 M (12/17/17 19:00) Chest, Single Ap (12/17/17 ) Urinalysis - C+S If Indicated (12/17/17 18:51) Cath For Specimen (12/17/17 18:51) Blood Culture (12/17/17 18:51) Lactic Acid (12/17/17 18:51) Metronidazole 500 Mg Inj (Flagyl 500 Mg (12/17/17 19:00) Levofloxacin 750 Mg Premix Inj (Levaquin (12/17/17 19:00) Urine Culture (12/17/17 19:10) Complete Blood Count With Diff (12/17/17 20:02) Comprehensive Metabolic Panel (12/17/17 20:02) Ct Abd/Pel W/O Iv Contrast (12/17/17 ) Admit Order (Ed Use Only) (12/17/17 ) Bedside Glucose KRISTAN.CSUGAR (12/17/17 21:56) Blood Glucose Goal (Criteria) (12/17/17 21:56) Hypoglycemia 70 Mg/Dl Or < (12/17/17 21:56) Notify Dr: Other (12/17/17 21:56) Dextrose 50% In [place] (Vial) Inj (D50w (Vi (12/17/17 22:00) Glucagon Inj (Glucagon Inj) (12/17/17 22:00) Insulin Aspart Supplemtl Scale (Novolog (12/18/17 08:00) Admit To Inpatient (12/17/17 ) Vital Signs (Adult) Q4H (12/17/17 21:56) Activity Oob With Assistance (12/17/17 21:56) Radiology Specialist / Telemetry .CONTINUOUS (12/17/17 21:56) Intake + Output KRISTAN.QSHIFT (12/17/17 21:56) Diet 1800 Ada Cons Carb (12/18/17 Breakfast) Sodium Chlor 0.9% 1000 Ml Inj (Ns 1000 M (12/17/17 21:56) Sodium Chloride 0.9% Flush (Ns Flush) (12/17/17 22:00) Sodium Chloride 0.9% Flush (Ns Flush) (12/18/17 09:00) Metoclopramide Inj (Reglan Inj) (12/17/17 22:00) Comprehensive Metabolic Panel (12/18/17 06:00) Complete Blood Count With Diff (12/18/17 06:00) Scd Bilateral/Knee High KRISTAN.BID (12/17/17 21:56) Adrian Bilateral/Knee High KRISTAN.QSHIFT (12/17/17 22:00) Acetaminophen (Tylenol) (12/17/17 22:00) Acetamin-Hydrocod 325-5 Mg ([place] 5-325 (12/17/17 22:00) Docusate Sodium-Senna (Reina-Colace) (12/18/17 09:00) Magnesium Hydroxide Liq (Milk Of Magnesi (12/17/17 22:00) Sennosides (Senokot) (12/17/17 22:00) Bisacodyl Supp (Dulcolax Supp) (12/17/17 22:00) Lactulose Liq (Lactulose Liq) (12/17/17 22:00) Inpatient Certification (12/17/17 ) Labs Laboratory Tests Test 12/17/17 19:00 12/17/17 19:10 12/17/17 20:00 Lactic Acid Level 2.1 mmol/L Urine Color YELLOW Urine Turbidity CLOUDY Urine pH 5.0 Urine Specific [place] 1.011 Urine Protein 100 mg/dL Urine Glucose (UA) >=500 mg/dL Urine Ketones NEG mg/dL Urine Occult Blood MOD Urine Nitrite POS Urine Bilirubin NEG Urine Urobilinogen LESS THAN 2 mg/dL Urine Leukocyte Esterase NEG Urine RBC 10 /hpf Urine WBC 2 /hpf Urine Amorphous Sediment RARE Urine Bacteria MANY /hpf Urine Hyaline Casts 2 /lpf Microscopic Urinalysis Comment CATH-CULTURE IND White Blood Count 3.9 TH/MM3 Red Blood Count 4.23 MIL/MM3 Hemoglobin 11.9 GM/DL Hematocrit 34.9 % Mean Corpuscular Volume 82.6 FL Mean Corpuscular Hemoglobin 28.2 PG Mean Corpuscular Hemoglobin Concent 34.2 % Red Cell Distribution Width 14.3 % Platelet Count 195 TH/MM3 Mean Platelet Volume 9.4 FL Neutrophils (%) (Auto) 90.7 % Lymphocytes (%) (Auto) 6.8 % Monocytes (%) (Auto) 1.5 % Eosinophils (%) (Auto) 0.5 % Basophils (%) (Auto) 0.5 % Neutrophils # (Auto) 3.6 TH/MM3 Lymphocytes # (Auto) 0.3 TH/MM3 Monocytes # (Auto) 0.1 TH/MM3 Eosinophils # (Auto) 0.0 TH/MM3 Basophils # (Auto) 0.0 TH/MM3 CBC Comment DIFF FINAL Differential Comment Blood Urea Nitrogen 20 MG/DL Creatinine 1.18 MG/DL Random Glucose 218 MG/DL Total Protein 8.1 GM/DL Albumin 3.8 GM/DL Calcium Level 9.4 MG/DL Alkaline Phosphatase 98 U/L Aspartate Amino Transf (AST/SGOT) 51 U/L Alanine Aminotransferase (ALT/SGPT) 39 U/L Total Bilirubin 0.7 MG/DL Sodium Level 139 MEQ/L Potassium Level 3.2 MEQ/L Chloride Level 102 MEQ/L Carbon Dioxide Level 25.6 MEQ/L Anion Gap 11 MEQ/L Estimat Glomerular Filtration Rate 46 ML/MIN MDM Supervised Visit with NEERAJ: No Narrative Course Patient CARE assume from Dr. Deon Verde at 1900, this is a 59-year-old female presents with fever and abdominal pain, I am asked to follow-up labs and disposition properly. Patient was tachycardic and febrile on arrival, she received Levaquin and Flagyl prior to my arrival his diverticulitis was the differential concern. Patient does have nitrate positive urine on labs, lactic acid negative and the patient appears well negating the need for aggressive fluid resuscitation but with her sirs criteria and UTIs she is therefore septic. Levaquin should be adequate coverage. Patient CT the abdomen was performed without contrast as the patient did admit that she had a contrast allergy, did show significant fat stranding and minimal hydronephrosis on the right side. This would be consistent with a pyelonephritis. Equivocal finding as far as a obstructing kidney stone. However will be difficult to evaluate further as the patient is allergic to IV contrast. Patient was discussed briefly with Dr. Lynn who states with the CT findings probably will be managed conservatively. Patient will be admitted to Dr. Elizalde was discussed with her and she is agreeable peer Diagnosis Primary Impression: Sepsis Additional Impressions: UTI (urinary tract infection) Pyelonephritis Hydronephrosis Admitting Information Admitting Physician Requests: Admit Condition: Stable Billy Shannon MD Dec 17, 2017 19:36
--- NOTE | 2017-12-17 19:41 | RADRPT ---
EXAM DATE: 12/17/2017 7:24 PM EDT AGE/SEX: 67 years / Female INDICATIONS: Fever, difficulty breathing for 24 hours CLINICAL DATA: This is the patient's initial encounter. Patient reports that signs and symptoms have been present for 1 day and indicates a pain score of 0/10. MEDICAL/SURGICAL HISTORY: None. None. [place] [facility] [place]. . FINDINGS: Heart size enlarged. Granuloma left lung base. Minimal basilar atelectasis. No dense consolidation or effusion. No pneumothorax. CONCLUSION: Minimal basilar atelectasis. No consolidation or significant effusion. Granuloma left lung base. Electronically signed by: Dhruv Renee MD 12/17/2017 7:39 PM EDT
[2017-12-17 20:18] LABS: AUTOMATED NEUTROPHIL # 3.6 TH/MM3 (1.8-7.7); BASOPHIL % 0.5 % (0.0-2.0); EOSINOPHIL % 0.5 % (0.0-4.0); HEMATOCRIT 34.9 % (35.0-46.0); HEMOGLOBIN 11.9 GM/DL (11.6-15.3); LYMPH % 6.8 % (9.0-44.0); LYMPHOCYTE # 0.3 TH/MM3 (1.0-4.8); MEAN CELL VOLUME 82.6 FL (80.0-100.0); MEAN CORPUSCULAR HEMOGLOBIN 28.2 PG (27.0-34.0); MEAN CORPUSCULAR HGB CONC 34.2 % (32.0-36.0); MEAN PLATELET VOLUME 9.4 FL (7.0-11.0); MONO % 1.5 % (0.0-8.0); MONOCYTE # 0.1 TH/MM3 (0-0.9); NEUT % 90.7 % (16.0-70.0); PLATELET COUNT 195 TH/MM3 (150-450); RED BLOOD COUNT 4.23 MIL/MM3 (4.00-5.30); RED CELL DISTRIBUTION WIDTH 14.3 % (11.6-17.2); WHITE BLOOD COUNT 3.9 TH/MM3 (4.0-11.0)
[2017-12-17 20:35] LABS: ALBUMIN 3.8 GM/DL (3.4-5.0); ALT (GPT) 39 U/L (10-53); AST (GOT) 51 U/L (15-37); BICARBONATE 25.6 MEQ/L (21.0-32.0); BLOOD UREA NITROGEN 20 MG/DL (7-18); CALCIUM 9.4 MG/DL (8.5-10.1); CHLORIDE 102 MEQ/L (98-107); CREATININE 1.18 MG/DL (0.50-1.00); GLOMERULAR FILTRATION RATE 46 ML/MIN (>89); GLUCOSE,RANDOM 218 MG/DL (74-106); SODIUM (NA) 139 MEQ/L (136-145)
[2017-12-17 20:37] LABS: ALKALINE PHOSPHATASE 98 U/L (45-117); TOTAL BILIRUBIN ADULT 0.7 MG/DL (0.2-1.0); TOTAL PROTEIN 8.1 GM/DL (6.4-8.2)
--- NOTE | 2017-12-17 21:38 | RADRPT ---
EXAM DATE: 12/17/2017 9:25 PM EDT AGE/SEX: 67 years / Female INDICATIONS: Abdominal pain and fever. CLINICAL DATA: This is the patient's initial encounter. Patient reports that signs and symptoms have been present for 1 day and indicates a pain score of 5/10. MEDICAL/SURGICAL HISTORY: Hypertension. Diabetes. Cardiovascular disease. Myocardial infarct ion . Partial thyroidectomy RADIATION DOSE: 6.57 CTDI (mGy) COMPARISON: No prior exams available for comparison. TECHNIQUE: Multiple contiguous axial images were obtained through the abdomen. Images were obtained using multiple row detector helical technique. Using dose reduction techniques, radiation dose was ke pt as low as reasonably achievable to obtain optimal diagnostic quality images. FINDINGS: Lung bases demonstrate some dependent atelectasis. There is fatty infiltration of the liver. Calcifie d granulomata present in the liver and spleen. Adrenals and left kidney unremarkable. There is some stranding around the right kidney with mild dilatation of the right renal collecting sy stem. There is a questionable 3 mm calculus in the distal right ureter although this could represent an adjacent vascular calcification. No bladder calculi. CONCLUSION: 1. Equivocal findings on the right with stranding around the right kidney and proximal right ureter and questionable calculus in the distal right ureter. Differential diagnosis would also include a rig ht-sided pyelonephritis in patient with history of fever. No left-sided obstructive uropathy or signi ficant perinephric stranding. 2. Mild constipation. 3. Fatty liver. 4. Calcified granulomata in the liver and spleen. Electronically signed by: Dhruv Renee MD 12/17/2017 9:36 PM EDT
[2017-12-17] MEDS ORDERED: BISACODYL 10 MG SUPP RECTAL PRN (22:00)
[2017-12-17] MEDS ORDERED: ACETAMINOPHEN/HYDROcodone 325 MG/5 MG TAB PO PRN (22:00)
[2017-12-17] MEDS ORDERED: SODIUM CHLORIDE 0.9% FLUSH 10 ML FLUSH IV FLUSH PRN (22:00)
[2017-12-17] MEDS ORDERED: LACTULOSE SYRUP 20 GM/30 ML CUP PO PRN (22:00)
[2017-12-17] MEDS ORDERED: SENNOSIDES 8.6 MG TAB PO PRN (22:00)
[2017-12-17] MEDS ORDERED: MAGNESIUM HYDROXIDE SUSP 30 ML CUP PO PRN (22:00)
[2017-12-17] MEDS ORDERED: METOCLOPRAMIDE HCL 10 MG/2 ML VIAL IV PUSH PRN (22:00)
[2017-12-17] MEDS ORDERED: GLUCAGON 1 MG/ML VIAL OTHER PRN (22:00)
[2017-12-17] MEDS ORDERED: DEXTROSE 50% IN WATER 50 ML VIAL(D50) IV PUSH PRN (22:00)
--- NOTE | 2017-12-17 22:00 | HHI.HP ---
[facility] Unknown Admission Diagnosis Sepsis, UTI/Pyelonephritis Diagnoses: (1) Sepsis Diagnosis: Principal (2) UTI (urinary tract infection) Diagnosis: Principal (3) ANTONETTE (acute kidney injury) Diagnosis: Principal (4) DM (diabetes mellitus) Diagnosis: Principal Travel History International Travel<30 Days: No Contact w/Intl Traveler <30 Da: No Traveled to Known Affected Are: No History of Present Illness This is a 67-year-old female with a PMH of HTN and DM who presents to ER with complaints of fever in addition to generalized weakness. Symptoms have been ongoing x1 day. Denies chest pain, cough, nausea, vomiting diarrhea or sick contacts. On arrival, BP 163/73, HR 117, O2 sat 95% on RA, Temp 102.8. WBC 3.9. Creatinine 1.18, previously 0.77 on 01/23/2017. Lactic Acid 2.1. BS 218. UA positive for UTI. CXR with no consolidation or effusion. CT Abdomen/Pelvis equivocal findings on the right with stranding around the right kidney and proximal right ureter, questionable calculus. Imaging discussed w/ Urology, no intervention needed at this time. S/p Blood Cultures, Levaquin/Flagyl in ER. Review of Systems Except as stated in HPI: all other systems reviewed are Neg ROS: 14 point review of systems otherwise negative. Past Family Social History Past Medical History PMH: HTN and DM Past Surgical History PAST SURGICAL HISTORY: Bilateral Cataract Surgery, Jaw SURGERY, Partial Thyroidectomy Allergies: Coded Allergies: Iodinated Contrast- Oral and IV Dye (Verified Allergy, Severe, 12/17/17) penicillin G (Unverified Allergy, Unknown, 12/17/17) Family History PAST FAMILY HISTORY: Reviewed, positive for CAD. Social History PAST SOCIAL HISTORY: Negative for alcohol, tobacco or drugs. Physical Exam Vital Signs Vital Signs Date Time Temp Pulse Resp B/P (MAP) Pulse Ox O2 Delivery O2 Flow Rate FiO2 12/17/17 18:51 102.7 12/17/17 18:09 123 26 166/61 (96) 95 Room Air 12/17/17 17:43 102.8 117 22 163/73 (103) 95 Physical Exam PE: GENERAL: Extremely pleasant middle-aged white female in no acute distress. HEENT: PERRLA, EOMI. No scleral icterus or conjunctival pallor. No lid lag or facial droop. CARDIOVASCULAR: Regular rate and rhythm. No obvious murmurs to auscultation. No chest tenderness to palpation. RESPIRATORY: No obvious rhonchi or wheezing. Clear to auscultation. Breath sounds equal bilaterally. GASTROINTESTINAL: Abdomen soft, non-tender, nondistended. BS normal. MUSCULOSKELETAL: Extremities without clubbing, cyanosis, or edema. No obvious deformities. NEUROLOGICAL: Awake, alert and oriented x4. No focal neurologic deficits. Moving both upper and lower extremities spontaneously. Laboratory Laboratory Tests Test 12/17/17 19:00 12/17/17 19:10 12/17/17 20:00 Lactic Acid Level 2.1 Urine Color YELLOW Urine Turbidity CLOUDY Urine pH 5.0 Urine Specific [place] 1.011 Urine Protein 100 Urine Glucose (UA) >=500 Urine Ketones NEG Urine Occult Blood MOD Urine Nitrite POS Urine Bilirubin NEG Urine Urobilinogen LESS THAN 2 Urine Leukocyte Esterase NEG Urine RBC 10 Urine WBC 2 Urine Amorphous Sediment RARE Urine Bacteria MANY Urine Hyaline Casts 2 Microscopic Urinalysis Comment CATH-CULTURE IND White Blood Count 3.9 Red Blood Count 4.23 Hemoglobin 11.9 Hematocrit 34.9 Mean Corpuscular Volume 82.6 Mean Corpuscular Hemoglobin 28.2 Mean Corpuscular Hemoglobin Concent 34.2 Red Cell Distribution Width 14.3 Platelet Count 195 Mean Platelet Volume 9.4 Neutrophils (%) (Auto) 90.7 Lymphocytes (%) (Auto) 6.8 Monocytes (%) (Auto) 1.5 Eosinophils (%) (Auto) 0.5 Basophils (%) (Auto) 0.5 Neutrophils # (Auto) 3.6 Lymphocytes # (Auto) 0.3 Monocytes # (Auto) 0.1 Eosinophils # (Auto) 0.0 Basophils # (Auto) 0.0 CBC Comment DIFF FINAL Differential Comment Blood Urea Nitrogen 20 Creatinine 1.18 Random Glucose 218 Total Protein 8.1 Albumin 3.8 Calcium Level 9.4 Alkaline Phosphatase 98 Aspartate Amino Transf (AST/SGOT) 51 Alanine Aminotransferase (ALT/SGPT) 39 Total Bilirubin 0.7 Sodium Level 139 Potassium Level 3.2 Chloride Level 102 Carbon Dioxide Level 25.6 Anion Gap 11 Estimat Glomerular Filtration Rate 46 Date/Time Source Procedure Growth Status 12/17/17 19:00 Blood Peripheral Aerobic Blood Culture Pending Received 12/17/17 19:00 Blood Peripheral Anaerobic Blood Culture Pending Received 12/17/17 19:10 Urine Clean Catch Urine Culture Pending Received Result Diagram: 12/17/17199912/17/171999 Caprini VTE Risk Assessment Caprini VTE Risk Assessment: No/Low Risk (score <= 1) Caprini Risk Assessment Model Point Value = 1 Point Value = 2 Point Value = 3 Point Value = 5 Age 41-60 Minor surgery BMI > 25 kg/m2 Swollen legs Varicose veins or History of unexplained or recurrent spontaneous Oral contraceptives or hormone replacement Sepsis (< 1 month) Serious lung disease, including pneumonia (< 1 month) Abnormal pulmonary function Acute myocardial infarction Congestive heart failure (< 1 month) History of inflammatory bowel disease Medical patient at bed rest Age 61-74 Arthroscopic surgery Major open surgery (> 45 min) Laparoscopic surgery (> 45 min) Malignancy Confined to bed (> 72 hours) Immobilizing plaster cast Central venous access Age >= 75 History of VTE Family history of VTE Factor V Leiden Prothrombin [id number] Lupus anticoagulant Anticardiolipin antibodies Elevated serum homocysteine Heparin-induced thrombocytopenia Other congenital or acquired thrombophilia Stroke (< 1 month) Elective arthroplasty Hip, pelvis, or leg fracture Acute spinal cord injury (< 1 month) Prophylaxis Regimen Total Risk Factor Score Risk Level Prophylaxis Regimen 0-1 Low Early ambulation 2 Moderate Order ONE of the following: *Sequential Compression Device (SCD) *Heparin 5000 units SQ BID 3-4 Higher Order ONE of the following medications: *Heparin 5000 units SQ TID *Enoxaparin/Lovenox 40 mg SQ daily (WT < 150 kg, CrCl > 30 mL/min) *Enoxaparin/Lovenox 30 mg SQ daily (WT < 150 kg, CrCl > 10-29 mL/min) *Enoxaparin/Lovenox 30 mg SQ BID (WT < 150 kg, CrCl > 30 mL/min) AND/OR *Sequential Compression Device (SCD) 5 or more Highest Order ONE of the following medications: *Heparin 5000 units SQ TID (Preferred with Epidurals) *Enoxaparin/Lovenox 40 mg SQ daily (WT < 150 kg, CrCl > 30 mL/min) *Enoxaparin/Lovenox 30 mg SQ daily (WT < 150 kg, CrCl > 10-29 mL/min) *Enoxaparin/Lovenox 30 mg SQ BID (WT < 150 kg, CrCl > 30 mL/min) AND *Sequential Compression Device (SCD) Assessment and Plan Problem List: (1) Sepsis ICD Code: A41.9 - Sepsis, unspecified organism (2) UTI (urinary tract infection) ICD Code: N39.0 - Urinary tract infection, site not specified (3) ANTONETTE (acute kidney injury) ICD Code: N17.9 - Acute kidney failure, unspecified (4) DM (diabetes mellitus) ICD Code: E11.9 - Type 2 diabetes mellitus without complications Status: Acute Assessment and Plan A/P: 1. Sepsis: Temp 102.8, HR 123, WBC 3.9, Lactic Acid 2.1, Source-UTI/ Pyelonephritis. S/p Blood Cultures, will follow up. CXR w/ no consolidation, CT Abd/Pelvis w/ right perinephric stranding, possible calculus, however discussed w/ Urology and no intervention required at this time. Continue w/ IVF , repeat Lactic Acid. 2. UTI: U/a w/ UTI, IVF for hydration, follow up cultures, continue IV Levaquin. 3. ANTONETTE: Creatinine 1.18, previously 0.77 on 01/23/17, IVF for hydration, monitor I/O, repeat labs in am. 4. DM: Sliding scale w/ Accu-Cheks, hold Glipizide for now to avoid hypoglycemia as decreased PO intake 5. DVT Prophylaxis: SCD/Teds 6. Social work for d/c planning as needed. 7. Case discussed w/ ER physician at length, labs/records/imaging reviewed by me. 8. Case discussed w/ pt's daughter via telephone at pt's request. Daughter is in [place], asked if she should drive down here, I explained to her that patient is currently stable and in good condition, however I cannot guarantee whether or not she will remain this way in light of her having sepsis, however as of this time I do not foresee an emergent need for daughter to travel but we will contact her should pt's status change. Physician Certification 2 Midnight Certification Type: Admission for Inpatient Services Order for Inpatient Services The services are ordered in accordance with Medicare regulations or non- Medicare payer requirements, as applicable. In the case of services not specified as inpatient-only, they are appropriately provided as inpatient services in accordance with the 2-midnight benchmark. Estimated LOS (days): 2 days is the estimated time the patient will need to remain in the hospital, assuming treatment plan goals are met and no additional complications. Post-Hospital Plan: Not yet determined Ana Walker MD Dec 17, 2017 22:00
[2017-12-17] MEDS ORDERED: MORPHINE SULFATE 4 MG/ML INJ IV PUSH PRN (22:15)
[2017-12-17] MEDS: SODIUM CHLOR 0.9% 1000 ML INJ 1,000 ML IV SCH (22:37)
[2017-12-17 22:46] VITALS: BP 104/57; PULSE 84; RESP 20; TEMP 98.4; O2SAT 94
[2017-12-18] VITALS (7 sets, daily range): BP systolic 105–136; BP diastolic 53–90; PULSE 73–89; RESP 17–18; TEMP 98.2–102.7; O2SAT 94–96
[2017-12-18 05:33] LABS: AUTOMATED NEUTROPHIL # 9.7 TH/MM3 (1.8-7.7); BASOPHIL % 0.3 % (0.0-2.0); EOSINOPHIL % 0.1 % (0.0-4.0); HEMATOCRIT 27.4 % (35.0-46.0); HEMOGLOBIN 9.4 GM/DL (11.6-15.3); LYMPH % 9.2 % (9.0-44.0); LYMPHOCYTE # 1.1 TH/MM3 (1.0-4.8); MEAN CELL VOLUME 82.4 FL (80.0-100.0); MEAN CORPUSCULAR HEMOGLOBIN 28.1 PG (27.0-34.0); MEAN CORPUSCULAR HGB CONC 34.2 % (32.0-36.0); MEAN PLATELET VOLUME 9.3 FL (7.0-11.0); MONO % 10.9 % (0.0-8.0); MONOCYTE # 1.3 TH/MM3 (0-0.9); NEUT % 79.5 % (16.0-70.0); PLATELET COUNT 200 TH/MM3 (150-450); RED BLOOD COUNT 3.33 MIL/MM3 (4.00-5.30); RED CELL DISTRIBUTION WIDTH 14.1 % (11.6-17.2); WHITE BLOOD COUNT 12.1 TH/MM3 (4.0-11.0)
[2017-12-18 06:07] LABS: ALBUMIN 2.9 GM/DL (3.4-5.0); ALKALINE PHOSPHATASE 70 U/L (45-117); ALT (GPT) 32 U/L (10-53); AST (GOT) 27 U/L (15-37); BICARBONATE 25.6 MEQ/L (21.0-32.0); BLOOD UREA NITROGEN 21 MG/DL (7-18); CALCIUM 8.3 MG/DL (8.5-10.1); CHLORIDE 107 MEQ/L (98-107); CREATININE 1.06 MG/DL (0.50-1.00); GLOMERULAR FILTRATION RATE 52 ML/MIN (>89); GLUCOSE,RANDOM 144 MG/DL (74-106); SODIUM (NA) 144 MEQ/L (136-145); TOTAL BILIRUBIN ADULT 0.4 MG/DL (0.2-1.0); TOTAL PROTEIN 6.4 GM/DL (6.4-8.2)
[2017-12-18] MEDS: LEVOTHYROXINE SODIUM 100 MCG TAB PO SCH (06:16)
[2017-12-18] MEDS: INSULIN ASPART SUPPLEMENTAL SCALE SQ SCH ×4 (08:00→21:09)
[2017-12-18] MEDS: CYCLOBENZAPRINE HCL 10 MG TAB PO SCH ×2 (08:09→20:51)
[2017-12-18] MEDS: PANTOPRAZOLE SOD 20 MG DELAYED RELEASE TAB PO SCH ×2 (08:09→20:51)
[2017-12-18] MEDS: CARVEDILOL 12.5 MG TAB PO SCH ×3 (08:10→20:54)
[2017-12-18] MEDS: DOCUSATE SODIUM 50 MG/SENNA 8.6 MG TAB PO SCH ×2 (08:10→20:51)
[2017-12-18] MEDS: CITALOPRAM HYDROBROMIDE 40 MG TAB PO SCH (08:10)
[2017-12-18] MEDS: SODIUM CHLOR 0.9% 1000 ML INJ 1,000 ML IV SCH ×2 (08:11→17:42)
[2017-12-18] MEDS: SODIUM CHLORIDE 0.9% FLUSH 10 ML FLUSH IV FLUSH SCH ×2 (08:11→20:52)
--- NOTE | 2017-12-18 08:30 | HHI.PR ---
Subjective Remarks Follow-up sepsis and pyelonephritis. Patient having UTI symptoms for 2 weeks. Improving back pain Objective Vitals Vital Signs Date Time Temp Pulse Resp B/P (MAP) Pulse Ox O2 Delivery O2 Flow Rate FiO2 12/18/17 04:00 98.6 73 18 106/59 (75) 96 12/18/17 00:00 98.2 77 18 105/53 (70) 96 12/17/17 23:50 12/17/17 22:46 98.4 84 20 104/57 (73) 94 Room Air 12/17/17 18:51 102.7 12/17/17 18:09 123 26 166/61 (96) 95 Room Air 12/17/17 17:43 102.8 117 22 163/73 (103) 95 I/O 12/17/17 12/17/17 12/17/17 12/18/17 12/18/17 12/18/17 07:00 15:00 23:00 07:00 15:00 23:00 Intake Total 1250 ml 240 ml Output Total 300 ml Balance 1250 ml -60 ml Intake Oral 240 ml IV Total 1250 ml Output Urine Total 300 ml Result Diagram: 12/18/17 0339 12/18/17 0339 Imaging Last Impressions Chest X-Ray 12/17/17 0000 Signed Impressions: CONCLUSION: Minimal basilar atelectasis. No consolidation or significant effusion. Granulom a left lung base. Abdomen/Pelvis CT 12/17/17 0000 Signed Impressions: CONCLUSION: 1. Equivocal findings on the right with stranding around the right kidney and proximal right ureter and questionable calculus in the distal right ureter. Dif ferential diagnosis would also include a right-sided pyelonephritis in patient with history of fever. No left-sided obstructive uropathy or significant perine phric stranding. 2. Mild constipation. 3. Fatty liver. 4. Calcified granulomata in the liver and spleen. Objective Remarks GENERAL: Extremely pleasant middle-aged white female in no acute distress. HEENT: PERRLA, EOMI. No scleral icterus or conjunctival pallor. No lid lag or facial droop. CARDIOVASCULAR: Regular rate and rhythm. No obvious murmurs to auscultation. No chest tenderness to palpation. RESPIRATORY: No obvious rhonchi or wheezing. Clear to auscultation. Breath sounds equal bilaterally. GASTROINTESTINAL: Abdomen soft, non-tender, nondistended. BS normal. Right CVA tenderness MUSCULOSKELETAL: Extremities without clubbing, cyanosis, or edema. No obvious deformities. NEUROLOGICAL: Awake, alert and oriented x4. No focal neurologic deficits. Moving both upper and lower extremities spontaneously. Procedures none A/P Problem List: (1) Sepsis ICD Code: A41.9 - Sepsis, unspecified organism (2) UTI (urinary tract infection) ICD Code: N39.0 - Urinary tract infection, site not specified (3) ANTONETTE (acute kidney injury) ICD Code: N17.9 - Acute kidney failure, unspecified (4) DM (diabetes mellitus) ICD Code: E11.9 - Type 2 diabetes mellitus without complications Status: Acute Assessment and Plan 1. Sepsis: Temp 102.8, HR 123, WBC 3.9, Lactic Acid 2.1, Source-UTI/ Pyelonephritis. S/p Blood Cultures, will follow up. CXR w/ no consolidation, CT Abd/Pelvis w/ right perinephric stranding, possible calculus, however discussed w/ Urology and no intervention required at this time. Continue w/ IV levaquin and IVF, repeat Lactic Acid. 2. UTI: U/a w/ UTI, IVF for hydration, follow up cultures, continue IV Levaquin. 3. ANTONETTE: Creatinine 1.18, previously 0.77 on 01/23/17, IVF for hydration, monitor I/O, repeat labs in am. Check CK 4. DM: Sliding scale w/ Accu-Cheks, hold Glipizide for now to avoid hypoglycemia as decreased PO intake. Consider restarting lower dose of levemir 5. Anemia w/o gross bleed likely dilutional. Monitor. Hemmoccult DVT Prophylaxis: SCD/Teds Jake Duncan MD Dec 18, 2017 08:30
[2017-12-18] MEDS ORDERED: diphenhydrAMINE HCL 25 MG CAP PO PRN (10:00)
[2017-12-18] MEDS: ACETAMINOPHEN 325 MG TAB PO PRN ×2 (13:25→20:51)
[2017-12-18] MEDS: LEVOFLOXACIN 750 MG PREMIX INJ 150 ML IV SCH (20:52)
[2017-12-18] MEDS: INSULIN DETEMIR 100 UNITS/ML VIAL SQ SCH (21:06)
[2017-12-18] MEDS ORDERED: IBUPROFEN 600 MG TAB PO ONE (22:45)
[2017-12-19] VITALS (10 sets, daily range): BP systolic 104–160; BP diastolic 54–68; PULSE 64–85; RESP 16–18; TEMP 97.7–102; O2SAT 92–96
[2017-12-19] MEDS: LEVOTHYROXINE SODIUM 100 MCG TAB PO SCH (05:04)
[2017-12-19] MEDS: SODIUM CHLOR 0.9% 1000 ML INJ 1,000 ML IV SCH ×2 (05:04→16:05)
[2017-12-19 07:12] LABS: AUTOMATED NEUTROPHIL # 3.1 TH/MM3 (1.8-7.7); BASOPHIL % 0.4 % (0.0-2.0); EOSINOPHIL % 0.5 % (0.0-4.0); HEMATOCRIT 26.9 % (35.0-46.0); HEMOGLOBIN 9.2 GM/DL (11.6-15.3); LYMPH % 16.1 % (9.0-44.0); LYMPHOCYTE # 0.7 TH/MM3 (1.0-4.8); MEAN CELL VOLUME 82.6 FL (80.0-100.0); MEAN CORPUSCULAR HEMOGLOBIN 28.2 PG (27.0-34.0); MEAN CORPUSCULAR HGB CONC 34.1 % (32.0-36.0); MONO % 12.8 % (0.0-8.0); MONOCYTE # 0.6 TH/MM3 (0-0.9); NEUT % 70.2 % (16.0-70.0); PLATELET COUNT 176 TH/MM3 (150-450); RED BLOOD COUNT 3.25 MIL/MM3 (4.00-5.30); RED CELL DISTRIBUTION WIDTH 14.4 % (11.6-17.2); WHITE BLOOD COUNT 4.4 TH/MM3 (4.0-11.0)
[2017-12-19 07:32] LABS: BICARBONATE 25.3 MEQ/L (21.0-32.0); CALCIUM 8.2 MG/DL (8.5-10.1); CREATININE 1.06 MG/DL (0.50-1.00); MAGNESIUM 1.9 MG/DL (1.5-2.5)
[2017-12-19] MEDS: INSULIN ASPART SUPPLEMENTAL SCALE SQ SCH ×4 (08:00→20:54)
[2017-12-19] MEDS: SODIUM CHLORIDE 0.9% FLUSH 10 ML FLUSH IV FLUSH SCH ×2 (08:17→20:47)
[2017-12-19] MEDS: DOCUSATE SODIUM 50 MG/SENNA 8.6 MG TAB PO SCH ×2 (08:54→20:43)
[2017-12-19] MEDS: CYCLOBENZAPRINE HCL 10 MG TAB PO SCH ×2 (08:54→20:43)
[2017-12-19] MEDS: CITALOPRAM HYDROBROMIDE 40 MG TAB PO SCH (08:54)
[2017-12-19] MEDS: PANTOPRAZOLE SOD 20 MG DELAYED RELEASE TAB PO SCH ×2 (08:54→20:43)
[2017-12-19] MEDS: CARVEDILOL 12.5 MG TAB PO SCH ×2 (08:57→20:43)
[2017-12-19] MEDS: INSULIN DETEMIR 100 UNITS/ML VIAL SQ SCH ×2 (08:57→20:48)
--- NOTE | 2017-12-19 10:19 | HHI.PR ---
Subjective Remarks Follow-up pyelonephritis and sepsis. Feels weak Objective Vitals Vital Signs Date Time Temp Pulse Resp B/P (MAP) Pulse Ox O2 Delivery O2 Flow Rate FiO2 12/19/17 08:00 99.3 81 18 118/59 (78) 96 12/19/17 04:25 97.7 67 16 104/54 (71) 94 12/19/17 03:55 64 12/19/17 00:24 99.8 78 18 110/54 (72) 94 12/19/17 00:03 71 12/18/17 22:21 101.2 12/18/17 20:00 102.7 89 18 136/90 (105) 95 12/18/17 16:00 99.3 79 18 106/62 (77) 94 12/18/17 12:00 101.1 81 17 113/56 (75) 95 I/O 12/18/17 12/18/17 12/18/17 12/19/17 12/19/17 12/19/17 07:00 15:00 23:00 07:00 15:00 23:00 Intake Total 240 ml 960 ml 1700 ml Output Total 300 ml 1200 ml 800 ml Balance -60 ml -240 ml 900 ml Intake Oral 240 ml 960 ml IV Total 1700 ml Output Urine Total 300 ml 1200 ml 800 ml Result Diagram: 12/19/17 0454 12/19/17 0454 Imaging Last Impressions Chest X-Ray 12/17/17 0000 Signed Impressions: CONCLUSION: Minimal basilar atelectasis. No consolidation or significant effusion. Granulom a left lung base. Abdomen/Pelvis CT 12/17/17 0000 Signed Impressions: CONCLUSION: 1. Equivocal findings on the right with stranding around the right kidney and proximal right ureter and questionable calculus in the distal right ureter. Dif ferential diagnosis would also include a right-sided pyelonephritis in patient with history of fever. No left-sided obstructive uropathy or significant perine phric stranding. 2. Mild constipation. 3. Fatty liver. 4. Calcified granulomata in the liver and spleen. Objective Remarks GENERAL: Extremely pleasant middle-aged white female in no acute distress. HEENT: PERRLA, EOMI. No scleral icterus or conjunctival pallor. No lid lag or facial droop. CARDIOVASCULAR: Regular rate and rhythm. No obvious murmurs to auscultation. No chest tenderness to palpation. RESPIRATORY: No obvious rhonchi or wheezing. Clear to auscultation. Breath sounds equal bilaterally. GASTROINTESTINAL: Abdomen soft, non-tender, nondistended. BS normal. Right CVA tenderness MUSCULOSKELETAL: Extremities without clubbing, cyanosis, or edema. No obvious deformities. NEUROLOGICAL: Awake, alert and oriented x4. No focal neurologic deficits. Moving both upper and lower extremities spontaneously. Procedures none A/P Problem List: (1) Sepsis ICD Code: A41.9 - Sepsis, unspecified organism (2) UTI (urinary tract infection) ICD Code: N39.0 - Urinary tract infection, site not specified (3) ANTONETTE (acute kidney injury) ICD Code: N17.9 - Acute kidney failure, unspecified (4) DM (diabetes mellitus) ICD Code: E11.9 - Type 2 diabetes mellitus without complications Status: Acute Assessment and Plan 1. Sepsis: Temp 102.8, HR 123, WBC 3.9, Lactic Acid 2.1, Source-UTI/ Pyelonephritis. S/p Blood Cultures growing E. coli. CXR w/ no consolidation, CT Abd/Pelvis w/ right perinephric stranding, possible calculus, however discussed w/ Urology and no intervention required at this time. Continue w/ IV levaquin and IVF, repeat Lactic Acid 1.1. Repeat blood culture in the morning if afebrile 2. UTI: U/a w/ UTI, IVF for hydration, follow up cultures with E. coli, continue IV Levaquin. 3. ANTONETTE: Creatinine 1.18, previously 0.77 on 01/23/17, IVF for hydration, monitor I/O, repeat labs in am. CK WNL. Stable 4. DM: Sliding scale w/ Accu-Cheks, hold Glipizide for now to avoid hypoglycemia as decreased PO intake. Ct lower dose of levemir and adjust accordingly DVT Prophylaxis: SCD/Teds Discharge Planning Patient with E. coli bacteremia receiving IV Levaquin not ready for discharge Jake Duncan MD Dec 19, 2017 10:19
[2017-12-19] MEDS: ACETAMINOPHEN 325 MG TAB PO PRN ×2 (12:50→21:00)
[2017-12-19] MEDS: LEVOFLOXACIN 750 MG PREMIX INJ 150 ML IV SCH (20:44)
[2017-12-20] VITALS (8 sets, daily range): BP systolic 113–163; BP diastolic 59–70; PULSE 68–79; RESP 17–19; TEMP 98.3–101; O2SAT 92–97
[2017-12-20] MEDS: SODIUM CHLOR 0.9% 1000 ML INJ 1,000 ML IV SCH ×3 (02:51→20:20)
[2017-12-20] MEDS: ACETAMINOPHEN 325 MG TAB PO PRN (04:05)
[2017-12-20] MEDS: LEVOTHYROXINE SODIUM 100 MCG TAB PO SCH (04:05)
[2017-12-20] MEDS: SODIUM CHLORIDE 0.9% FLUSH 10 ML FLUSH IV FLUSH SCH ×2 (09:00→20:18)
[2017-12-20] MEDS: INSULIN ASPART SUPPLEMENTAL SCALE SQ SCH ×4 (09:31→20:25)
[2017-12-20] MEDS: INSULIN DETEMIR 100 UNITS/ML VIAL SQ SCH ×2 (09:31→20:21)
[2017-12-20] MEDS: DOCUSATE SODIUM 50 MG/SENNA 8.6 MG TAB PO SCH ×2 (09:32→20:14)
--- NOTE | 2017-12-20 09:32 | HHI.PR ---
Subjective Remarks Follow-up sepsis and pyelonephritis. She is feeling better but still spiking temperature Objective Vitals Vital Signs Date Time Temp Pulse Resp B/P (MAP) Pulse Ox O2 Delivery O2 Flow Rate FiO2 12/20/17 08:00 98.4 68 17 126/59 (81) 92 12/20/17 04:42 101.0 79 18 142/65 (90) 92 12/20/17 03:30 77 12/20/17 00:00 98.4 77 18 131/60 (83) 92 12/19/17 23:11 74 12/19/17 20:00 101.8 85 18 160/67 (98) 93 12/19/17 19:59 83 12/19/17 16:00 99.6 78 18 121/57 (78) 93 12/19/17 12:00 102.0 80 18 147/68 (94) 92 I/O 12/19/17 12/19/17 12/19/17 12/20/17 12/20/17 12/20/17 07:00 15:00 23:00 07:00 15:00 23:00 Intake Total 1700 ml 1960 ml 450 ml Output Total 800 ml 1200 ml 1200 ml Balance 900 ml 760 ml -750 ml Intake Oral 960 ml IV Total 1700 ml 1000 ml 450 ml Output Urine Total 800 ml 1200 ml 1200 ml # Voids 5 # Bowel Movements 0 Result Diagram: 12/19/17 0454 12/19/17 0454 Imaging Last Impressions Chest X-Ray 12/17/17 0000 Signed Impressions: CONCLUSION: Minimal basilar atelectasis. No consolidation or significant effusion. Granulom a left lung base. Abdomen/Pelvis CT 12/17/17 0000 Signed Impressions: CONCLUSION: 1. Equivocal findings on the right with stranding around the right kidney and proximal right ureter and questionable calculus in the distal right ureter. Dif ferential diagnosis would also include a right-sided pyelonephritis in patient with history of fever. No left-sided obstructive uropathy or significant perine phric stranding. 2. Mild constipation. 3. Fatty liver. 4. Calcified granulomata in the liver and spleen. Objective Remarks GENERAL: Extremely pleasant middle-aged white female in no acute distress. HEENT: PERRLA, EOMI. No scleral icterus or conjunctival pallor. No lid lag or facial droop. CARDIOVASCULAR: Regular rate and rhythm. No obvious murmurs to auscultation. No chest tenderness to palpation. RESPIRATORY: No obvious rhonchi or wheezing. Clear to auscultation. Breath sounds equal bilaterally. GASTROINTESTINAL: Abdomen soft, non-tender, nondistended. BS normal. Right CVA tenderness MUSCULOSKELETAL: Extremities without clubbing, cyanosis, or edema. No obvious deformities. NEUROLOGICAL: Awake, alert and oriented x4. No focal neurologic deficits. Moving both upper and lower extremities spontaneously. Procedures none A/P Problem List: (1) Sepsis ICD Code: A41.9 - Sepsis, unspecified organism (2) UTI (urinary tract infection) ICD Code: N39.0 - Urinary tract infection, site not specified (3) ANTONETTE (acute kidney injury) ICD Code: N17.9 - Acute kidney failure, unspecified (4) DM (diabetes mellitus) ICD Code: E11.9 - Type 2 diabetes mellitus without complications Status: Acute Assessment and Plan 1. Sepsis: Temp 102.8, HR 123, WBC 3.9, Lactic Acid 2.1, Source-UTI/ Pyelonephritis. S/p Blood Cultures growing E. coli sensitivity pending. CXR w / no consolidation, CT Abd/Pelvis w/ right perinephric stranding, possible calculus, however discussed w/ Urology and no intervention required at this time. Continue w/ IV levaquin and IVF, repeat Lactic Acid 1.1. Repeat blood culture in the morning if afebrile. Still spiking temperature tmax 102. Consider ID consultation 2. UTI: U/a w/ UTI, IVF for hydration, follow up cultures with E. coli sensitive to Cipro, continue IV Levaquin. 3. ANTONETTE: Creatinine 1.18, previously 0.77 on 01/23/17, IVF for hydration, monitor I/O. CK WNL. Stable 4. DM: Sliding scale w/ Accu-Cheks, hold Glipizide for now to avoid hypoglycemia as decreased PO intake. Ct lower dose of levemir and adjust accordingly DVT Prophylaxis: SCD/Teds Discharge Planning Patient with E. coli bacteremia receiving IV Levaquin not ready for discharge secondary to spiking temperature Jake Duncan MD Dec 20, 2017 09:32
[2017-12-20] MEDS: CARVEDILOL 12.5 MG TAB PO SCH ×2 (09:33→20:15)
[2017-12-20] MEDS: CITALOPRAM HYDROBROMIDE 40 MG TAB PO SCH (09:33)
[2017-12-20] MEDS: CYCLOBENZAPRINE HCL 10 MG TAB PO SCH ×2 (09:33→20:15)
[2017-12-20] MEDS: PANTOPRAZOLE SOD 20 MG DELAYED RELEASE TAB PO SCH ×2 (09:33→20:15)
[2017-12-20] MEDS: LEVOFLOXACIN 750 MG PREMIX INJ 150 ML IV SCH (20:15)
[2017-12-21] VITALS (9 sets, daily range): BP systolic 99–158; BP diastolic 56–72; PULSE 60–80; RESP 17–20; TEMP 98–100.8; O2SAT 92–97
[2017-12-21] MEDS: SODIUM CHLOR 0.9% 1000 ML INJ 1,000 ML IV SCH ×2 (05:58→17:31)
[2017-12-21] MEDS: LEVOTHYROXINE SODIUM 100 MCG TAB PO SCH (06:04)
[2017-12-21] MEDS: SODIUM CHLORIDE 0.9% FLUSH 10 ML FLUSH IV FLUSH SCH ×2 (06:55→20:17)
[2017-12-21] MEDS: CARVEDILOL 12.5 MG TAB PO SCH ×2 (07:37→20:16)
[2017-12-21] MEDS: CYCLOBENZAPRINE HCL 10 MG TAB PO SCH ×2 (07:37→20:16)
[2017-12-21] MEDS: CITALOPRAM HYDROBROMIDE 40 MG TAB PO SCH (07:38)
[2017-12-21] MEDS: DOCUSATE SODIUM 50 MG/SENNA 8.6 MG TAB PO SCH ×2 (07:38→20:17)
[2017-12-21] MEDS: PANTOPRAZOLE SOD 20 MG DELAYED RELEASE TAB PO SCH ×2 (07:38→20:17)
[2017-12-21] MEDS: INSULIN ASPART SUPPLEMENTAL SCALE SQ SCH ×4 (07:41→20:28)
[2017-12-21] MEDS: INSULIN DETEMIR 100 UNITS/ML VIAL SQ SCH ×2 (08:22→20:21)
--- NOTE | 2017-12-21 09:04 | HHI.PR ---
Subjective Remarks in no acute distress. T max 100.1. right flank pain has almost resolved. Objective Vitals Vital Signs Date Time Temp Pulse Resp B/P (MAP) Pulse Ox O2 Delivery O2 Flow Rate FiO2 12/21/17 08:29 70 12/21/17 08:29 70 12/21/17 04:24 98.8 68 18 125/58 (80) 94 12/21/17 04:00 68 12/21/17 00:13 99.9 69 18 158/72 (100) 96 12/21/17 00:00 80 12/20/17 20:26 100.1 76 18 163/70 (101) 97 12/20/17 19:59 73 12/20/17 16:00 98.3 74 19 146/70 (95) 96 12/20/17 12:00 98.4 73 18 113/60 (77) 94 I/O 12/20/17 12/20/17 12/20/17 12/21/17 12/21/17 12/21/17 07:00 15:00 23:00 07:00 15:00 23:00 Intake Total 450 ml 3350 ml 1360 ml Output Total 1200 ml 475 ml 1800 ml Balance -750 ml 2875 ml -440 ml Intake Oral 1000 ml 760 ml IV Total 450 ml 2350 ml 600 ml Output Urine Total 1200 ml 475 ml 1800 ml # Bowel Movements 0 Result Diagram: 12/19/17 0454 12/19/17 0454 Imaging Last Impressions Chest X-Ray 12/17/17 0000 Signed Impressions: CONCLUSION: Minimal basilar atelectasis. No consolidation or significant effusion. Granulom a left lung base. Abdomen/Pelvis CT 12/17/17 0000 Signed Impressions: CONCLUSION: 1. Equivocal findings on the right with stranding around the right kidney and proximal right ureter and questionable calculus in the distal right ureter. Dif ferential diagnosis would also include a right-sided pyelonephritis in patient with history of fever. No left-sided obstructive uropathy or significant perine phric stranding. 2. Mild constipation. 3. Fatty liver. 4. Calcified granulomata in the liver and spleen. Objective Remarks GENERAL: This is a well-nourished, well-developed patient, in no apparent distress. CARDIOVASCULAR: Regular rate and regular rhythm without murmurs, gallops, or rubs. RESPIRATORY: Clear to auscultation. Breath sounds equal bilaterally. No wheezes , rales, or rhonchi. GASTROINTESTINAL: Abdomen soft, non-tender, nondistended. Normal, active bowel sounds MUSCULOSKELETAL: Extremities without clubbing, cyanosis, or edema. NEURO: Alert & Oriented x4 to person, place, time, situation. Moves all ext x4 Procedures none Medications and IVs Inpatient Medications Acetaminophen (Tylenol Supp) 325 mg ONCE ONCE RECTAL Last administered on 12/17at 19:03; Start 12/17/17 at 19:00; Stop 12/17/17 at 19:03; Status DC Acetaminophen (Tylenol) 650 mg Q6H PRN PO FEVER/PAIN SCALE 1 TO 2 Last administered on 12/20/17at 04:05; Start 12/17/17 at 22:00 Acetaminophen/ Hydrocodone Bitart ([place] 5-325 Mg) 1 tab Q4H PRN PO PAIN SCALE 3 TO 5 Last administered on 12/21/17at 00:43; Start 12/17/17 at 22:00 Bisacodyl (Dulcolax Supp) 10 mg DAILY PRN RECTAL SEVERE CONSITIPATION; Start at 22:00 Carvedilol (Coreg) 25 mg BID PO Last administered on 12/21/17at 07:37; Start at 09:00 Citalopram Hydrobromide (CeleXA) 40 mg DAILY PO Last administered on 12/21/17at 07:38; Start 12/18/17 at 09:00 Cyclobenzaprine HCl (Flexeril) 10 mg BID PO Last administered on 12/21/17at 07: 37; Start 12/18/17 at 09:00 Dextrose (D50w (Vial) Inj) 50 ml UNSCH PRN IV PUSH HYPOGLYCEMIA-SEE COMMENTS; Start 12/17/17 at 22:00 Diphenhydramine HCl (Benadryl) 25 mg Q6H PRN PO itching Last administered on at 10:20; Start 12/18/17 at 10:00 Glucagon (Glucagon Inj) 1 mg UNSCH PRN OTHER HYPOGLYCEMIA-SEE COMMENTS; Start 12/17/17 at 22:00 Ibuprofen (Motrin) 600 mg ONCE ONCE PO Last administered on 12/18/17at 22:37; Start 12/18/17 at 22:45; Stop 12/18/17 at 22:46; Status DC Insulin Aspart (NovoLOG SUPPLEMENTAL SCALE) 1 ACHS SLIDING SCALE SQ Last administered on 12/20/17at 20:25; Start 12/18/17 at 08:00 Insulin Detemir (Levemir Inj) 10 units DAILYAC SQ Last administered on at 08:22; Start 12/19/17 at 08:00 Lactulose (Lactulose Liq) 30 ml DAILY PRN PO SEVERE CONSITIPATION Last administered on 12/21/17at 07:37; Start 12/17/17 at 22:00 Levofloxacin/ Dextrose 150 ml @ 100 mls/hr Q24H IV Last administered on at 20:15; Start 12/18/17 at 20:00 Levothyroxine Sodium (Synthroid) 100 mcg DAILY@0600 PO Last administered on at 06:04; Start 12/18/17 at 06:00 Magnesium Hydroxide (Milk Of Magnesia Liq) 30 ml Q12H PRN PO Mild constipation Last administered on 12/20/17at 17:28; Start 12/17/17 at 22:00 Metoclopramide HCl (Reglan Inj) 5 mg Q6H PRN IV PUSH NAUSEA OR VOMITING; Start 12/17/17 at 22:00 Metronidazole 100 ml @ 100 mls/hr ONCE ONCE IV Last administered on at 21:09; Start 12/17/17 at 19:00; Stop 12/17/17 at 19:59; Status DC Morphine Sulfate (Morphine Inj) 2 mg Q3H PRN IV PUSH Pain 6-10; Start 12/17/17 at 22:15 Pantoprazole Sodium (Protonix) 20 mg BID PO Last administered on 12/21/17at 07: 38; Start 12/18/17 at 09:00 Senna/Docusate Sodium (Reina-Colace) 1 tab BID PO Last administered on at 07:38; Start 12/18/17 at 09:00 Sennosides (Senokot) 17.2 mg Q12H PRN PO Moderate constipation; Start 12/17/17 at 22:00 Sodium Chloride (NS Flush) 2 ml BID IV FLUSH ; Start 12/18/17 at 09:00 A/P Problem List: (1) Sepsis ICD Code: A41.9 - Sepsis, unspecified organism (2) UTI (urinary tract infection) ICD Code: N39.0 - Urinary tract infection, site not specified (3) ANTONETTE (acute kidney injury) ICD Code: N17.9 - Acute kidney failure, unspecified (4) DM (diabetes mellitus) ICD Code: E11.9 - Type 2 diabetes mellitus without complications Status: Acute Assessment and Plan A/P 1. Sepsis due to pyelonephritis-clinically improving. continue with IV Levaquin- will monitor the temps. 2. bacteremia with e-coli- continue with levaquin as noted above-monitor the repeated blood cultures. 3. ANTONETTE: Creatinine 1.18, previously 0.77 on 01/23/17, IVF for hydration, monitor I/O. CK WNL. Stable 4. DM: Sliding scale w/ Accu-Cheks, hold Glipizide for now to avoid hypoglycemia as decreased PO intake. Ct lower dose of levemir and adjust accordingly DVT Prophylaxis: SCD/Teds Discharge Planning possible dc home tomorrow if remains afebrile with negative blood cultures. Matthew Peña MD Dec 21, 2017 09:04
[2017-12-21] MEDS: LEVOFLOXACIN 750 MG PREMIX INJ 150 ML IV SCH (20:17)
[2017-12-22] VITALS (9 sets, daily range): BP systolic 126–187; BP diastolic 59–84; PULSE 58–74; RESP 17–19; TEMP 97.8–100; O2SAT 93–96
[2017-12-22] MEDS: SODIUM CHLOR 0.9% 1000 ML INJ 1,000 ML IV SCH ×3 (02:23→19:58)
[2017-12-22] MEDS: LEVOTHYROXINE SODIUM 100 MCG TAB PO SCH (04:17)
[2017-12-22] MEDS: INSULIN ASPART SUPPLEMENTAL SCALE SQ SCH ×4 (08:00→19:57)
[2017-12-22] MEDS: INSULIN DETEMIR 100 UNITS/ML VIAL SQ SCH ×2 (08:58→19:52)
[2017-12-22] MEDS: DOCUSATE SODIUM 50 MG/SENNA 8.6 MG TAB PO SCH ×2 (08:59→19:57)
[2017-12-22] MEDS: PANTOPRAZOLE SOD 20 MG DELAYED RELEASE TAB PO SCH ×2 (08:59→19:53)
[2017-12-22] MEDS: CARVEDILOL 12.5 MG TAB PO SCH ×2 (08:59→19:53)
[2017-12-22] MEDS: CYCLOBENZAPRINE HCL 10 MG TAB PO SCH ×2 (08:59→19:53)
[2017-12-22] MEDS: CITALOPRAM HYDROBROMIDE 40 MG TAB PO SCH (08:59)
[2017-12-22] MEDS: SODIUM CHLORIDE 0.9% FLUSH 10 ML FLUSH IV FLUSH SCH ×2 (09:00→19:57)
--- NOTE | 2017-12-22 10:22 | HHI.PR ---
Subjective Remarks in no acute distress. T max 100.8. has minimal lower abdominal pain. overall doing better. Objective Vitals Vital Signs Date Time Temp Pulse Resp B/P (MAP) Pulse Ox O2 Delivery O2 Flow Rate FiO2 12/22/17 09:08 69 12/22/17 04:17 98.8 63 18 135/74 (94) 96 12/22/17 04:00 58 12/22/17 00:28 100.0 64 17 145/68 (93) 96 12/22/17 00:00 62 12/21/17 20:21 100.8 79 18 142/65 (90) 96 12/21/17 16:00 98.0 70 17 152/65 (94) 94 12/21/17 12:00 98.3 63 20 108/56 (73) 92 I/O 12/21/17 12/21/17 12/21/17 12/22/17 12/22/17 12/22/17 07:00 15:00 23:00 07:00 15:00 23:00 Intake Total 1360 ml 2190 ml 1080 ml Output Total 1800 ml 800 ml 2400 ml Balance -440 ml 1390 ml -1320 ml Intake Oral 760 ml 840 ml 680 ml IV Total 600 ml 1350 ml 400 ml Output Urine Total 1800 ml 800 ml 2400 ml # Bowel Movements 1 Result Diagram: 12/19/17 0454 12/19/17 0454 Imaging Last Impressions Chest X-Ray 12/17/17 0000 Signed Impressions: CONCLUSION: Minimal basilar atelectasis. No consolidation or significant effusion. Granulom a left lung base. Abdomen/Pelvis CT 12/17/17 0000 Signed Impressions: CONCLUSION: 1. Equivocal findings on the right with stranding around the right kidney and proximal right ureter and questionable calculus in the distal right ureter. Dif ferential diagnosis would also include a right-sided pyelonephritis in patient with history of fever. No left-sided obstructive uropathy or significant perine phric stranding. 2. Mild constipation. 3. Fatty liver. 4. Calcified granulomata in the liver and spleen. Objective Remarks GENERAL: This is a well-nourished, well-developed patient, in no apparent distress. CARDIOVASCULAR: Regular rate and regular rhythm without murmurs, gallops, or rubs. RESPIRATORY: Clear to auscultation. Breath sounds equal bilaterally. No wheezes , rales, or rhonchi. GASTROINTESTINAL: Abdomen soft, non-tender, nondistended. Normal, active bowel sounds MUSCULOSKELETAL: Extremities without clubbing, cyanosis, or edema. NEURO: Alert & Oriented x4 to person, place, time, situation. Moves all ext x4 Procedures none Medications and IVs Inpatient Medications Acetaminophen (Tylenol Supp) 325 mg ONCE ONCE RECTAL Last administered on 12/17at 19:03; Start 12/17/17 at 19:00; Stop 12/17/17 at 19:03; Status DC Acetaminophen (Tylenol) 650 mg Q6H PRN PO FEVER/PAIN SCALE 1 TO 2 Last administered on 12/20/17at 04:05; Start 12/17/17 at 22:00 Acetaminophen/ Hydrocodone Bitart ([place] 5-325 Mg) 1 tab Q4H PRN PO PAIN SCALE 3 TO 5 Last administered on 12/21/17at 00:43; Start 12/17/17 at 22:00 Bisacodyl (Dulcolax Supp) 10 mg DAILY PRN RECTAL SEVERE CONSITIPATION; Start at 22:00 Carvedilol (Coreg) 25 mg BID PO Last administered on 12/22/17at 08:59; Start at 09:00 Citalopram Hydrobromide (CeleXA) 40 mg DAILY PO Last administered on 12/22/17at 08:59; Start 12/18/17 at 09:00 Cyclobenzaprine HCl (Flexeril) 10 mg BID PO Last administered on 12/22/17at 08: 59; Start 12/18/17 at 09:00 Dextrose (D50w (Vial) Inj) 50 ml UNSCH PRN IV PUSH HYPOGLYCEMIA-SEE COMMENTS; Start 12/17/17 at 22:00 Diphenhydramine HCl (Benadryl) 25 mg Q6H PRN PO itching Last administered on at 10:20; Start 12/18/17 at 10:00 Glucagon (Glucagon Inj) 1 mg UNSCH PRN OTHER HYPOGLYCEMIA-SEE COMMENTS; Start 12/17/17 at 22:00 Ibuprofen (Motrin) 600 mg ONCE ONCE PO Last administered on 12/18/17at 22:37; Start 12/18/17 at 22:45; Stop 12/18/17 at 22:46; Status DC Insulin Aspart (NovoLOG SUPPLEMENTAL SCALE) 1 ACHS SLIDING SCALE SQ Last administered on 12/21/17 20:28; Start 12/18/17 at 08:00 Insulin Detemir (Levemir Inj) 10 units DAILYAC SQ Last administered on at 08:58; Start 12/19/17 at 08:00 Lactulose (Lactulose Liq) 30 ml DAILY PRN PO SEVERE CONSITIPATION Last administered on 12/21/17at 07:37; Start 12/17/17 at 22:00 Levofloxacin/ Dextrose 150 ml @ 100 mls/hr Q24H IV Last administered on 20:17; Start 12/18/17 at 20:00 Levothyroxine Sodium (Synthroid) 100 mcg DAILY@0600 PO Last administered on 04:17; Start 12/18/17 at 06:00 Magnesium Hydroxide (Milk Of Magnesia Liq) 30 ml Q12H PRN PO Mild constipation Last administered on 12/20/17at 17:28; Start 12/17/17 at 22:00 Metoclopramide HCl (Reglan Inj) 5 mg Q6H PRN IV PUSH NAUSEA OR VOMITING; Start 12/17/17 at 22:00 Metronidazole 100 ml @ 100 mls/hr ONCE ONCE IV Last administered on at 21:09; Start 12/17/17 at 19:00; Stop 12/17/17 at 19:59; Status DC Morphine Sulfate (Morphine Inj) 2 mg Q3H PRN IV PUSH Pain 6-10; Start 12/17/17 at 22:15 Pantoprazole Sodium (Protonix) 20 mg BID PO Last administered on 12/22/17at 08: 59; Start 12/18/17 at 09:00 Senna/Docusate Sodium (Reina-Colace) 1 tab BID PO Last administered on at 08:59; Start 12/18/17 at 09:00 Sennosides (Senokot) 17.2 mg Q12H PRN PO Moderate constipation; Start 12/17/17 at 22:00 Sodium Chloride (NS Flush) 2 ml BID IV FLUSH Last administered on 12/22/17at 09: 00; Start 12/18/17 at 09:00 A/P Problem List: (1) Sepsis ICD Code: A41.9 - Sepsis, unspecified organism (2) UTI (urinary tract infection) ICD Code: N39.0 - Urinary tract infection, site not specified (3) ANTONETTE (acute kidney injury) ICD Code: N17.9 - Acute kidney failure, unspecified (4) DM (diabetes mellitus) ICD Code: E11.9 - Type 2 diabetes mellitus without complications Status: Acute Assessment and Plan A/P 1. Sepsis due to pyelonephritis-clinically improving. continue with IV Levaquin- will monitor the temps. 2. bacteremia with e-coli- continue with levaquin as noted above-repeated blood cultures negative so far. 3. ANTONETTE: Creatinine 1.18, previously 0.77 on 01/23/17, IVF for hydration, monitor I/O. CK WNL. Stable 4. DM: Sliding scale w/ Accu-Cheks, hold Glipizide for now to avoid hypoglycemia as decreased PO intake. Ct lower dose of levemir and adjust accordingly DVT Prophylaxis: SCD/Teds Discharge Planning still with on and off fever; possible dc home tomorrow if remains afebrile with negative blood cultures. Matthew Peña MD Dec 22, 2017 10:22
[2017-12-22] MEDS: LEVOFLOXACIN 750 MG PREMIX INJ 150 ML IV SCH (19:54)
[2017-12-23] VITALS: BP 151/74; PULSE 64; RESP 19; TEMP 97.2; O2SAT 95
[2017-12-23] MEDS: SODIUM CHLOR 0.9% 1000 ML INJ 1,000 ML IV SCH (02:49)
[2017-12-23 04:00] VITALS: BP 153/63; PULSE 76; RESP 18; TEMP 98.2; O2SAT 94
[2017-12-23] MEDS: LEVOTHYROXINE SODIUM 100 MCG TAB PO SCH (04:23)
[2017-12-23] MEDS: INSULIN ASPART SUPPLEMENTAL SCALE SQ SCH (08:00)
[2017-12-23] MEDS: INSULIN DETEMIR 100 UNITS/ML VIAL SQ SCH (08:00)
[2017-12-23] MEDS: CARVEDILOL 12.5 MG TAB PO SCH (08:07)
[2017-12-23] MEDS: PANTOPRAZOLE SOD 20 MG DELAYED RELEASE TAB PO SCH (08:07)
[2017-12-23] MEDS: CYCLOBENZAPRINE HCL 10 MG TAB PO SCH (08:07)
[2017-12-23] MEDS: CITALOPRAM HYDROBROMIDE 40 MG TAB PO SCH (08:07)
[2017-12-23] MEDS: SODIUM CHLORIDE 0.9% FLUSH 10 ML FLUSH IV FLUSH SCH (08:07)
[2017-12-23] MEDS: DOCUSATE SODIUM 50 MG/SENNA 8.6 MG TAB PO SCH (08:08)
--- NOTE | 2017-12-23 08:42 | HHI.PR ---
Subjective Remarks in no acute distress. overall doing fine. no fever or pain. Objective Vitals Vital Signs Date Time Temp Pulse Resp B/P (MAP) Pulse Ox O2 Delivery O2 Flow Rate FiO2 12/23/17 04:00 98.2 76 18 153/63 (93) 94 12/23/17 00:00 97.2 64 19 151/74 (99) 95 12/22/17 20:00 97.8 67 19 187/74 (111) 95 12/22/17 16:00 97.9 62 17 138/84 (102) 93 12/22/17 12:00 98.2 74 17 135/67 (89) 95 12/22/17 09:08 69 I/O 12/22/17 12/22/17 12/22/17 12/23/17 12/23/17 12/23/17 07:00 15:00 23:00 07:00 15:00 23:00 Intake Total 1080 ml 1500 ml 240 ml Output Total 2400 ml 1300 ml Balance -1320 ml 1500 ml -1060 ml Intake Oral 680 ml 900 ml 240 ml IV Total 400 ml 600 ml Output Urine Total 2400 ml 1300 ml # Voids 5 # Bowel Movements 2 Result Diagram: 12/19/17 0454 12/19/17 0454 Imaging Last Impressions Chest X-Ray 12/17/17 0000 Signed Impressions: CONCLUSION: Minimal basilar atelectasis. No consolidation or significant effusion. Granulom a left lung base. Abdomen/Pelvis CT 12/17/17 0000 Signed Impressions: CONCLUSION: 1. Equivocal findings on the right with stranding around the right kidney and proximal right ureter and questionable calculus in the distal right ureter. Dif ferential diagnosis would also include a right-sided pyelonephritis in patient with history of fever. No left-sided obstructive uropathy or significant perine phric stranding. 2. Mild constipation. 3. Fatty liver. 4. Calcified granulomata in the liver and spleen. Objective Remarks GENERAL: This is a well-nourished, well-developed patient, in no apparent distress. CARDIOVASCULAR: Regular rate and regular rhythm without murmurs, gallops, or rubs. RESPIRATORY: Clear to auscultation. Breath sounds equal bilaterally. No wheezes , rales, or rhonchi. GASTROINTESTINAL: Abdomen soft, non-tender, nondistended. Normal, active bowel sounds MUSCULOSKELETAL: Extremities without clubbing, cyanosis, or edema. NEURO: Alert & Oriented x4 to person, place, time, situation. Moves all ext x4 Procedures none Medications and IVs Inpatient Medications Acetaminophen (Tylenol Supp) 325 mg ONCE ONCE RECTAL Last administered on 12/17at 19:03; Start 12/17/17 at 19:00; Stop 12/17/17 at 19:03; Status DC Acetaminophen (Tylenol) 650 mg Q6H PRN PO FEVER/PAIN SCALE 1 TO 2 Last administered on 12/20/17at 04:05; Start 12/17/17 at 22:00 Acetaminophen/ Hydrocodone Bitart ([place] 5-325 Mg) 1 tab Q4H PRN PO PAIN SCALE 3 TO 5 Last administered on 12/21/17at 00:43; Start 12/17/17 at 22:00 Bisacodyl (Dulcolax Supp) 10 mg DAILY PRN RECTAL SEVERE CONSITIPATION; Start at 22:00 Carvedilol (Coreg) 25 mg BID PO Last administered on 12/23/17at 08:07; Start at 09:00 Citalopram Hydrobromide (CeleXA) 40 mg DAILY PO Last administered on 12/23/17at 08:07; Start 12/18/17 at 09:00 Cyclobenzaprine HCl (Flexeril) 10 mg BID PO Last administered on 12/23/17at 08: 07; Start 12/18/17 at 09:00 Dextrose (D50w (Vial) Inj) 50 ml UNSCH PRN IV PUSH HYPOGLYCEMIA-SEE COMMENTS; Start 12/17/17 at 22:00 Diphenhydramine HCl (Benadryl) 25 mg Q6H PRN PO itching Last administered on at 10:20; Start 12/18/17 at 10:00 Glucagon (Glucagon Inj) 1 mg UNSCH PRN OTHER HYPOGLYCEMIA-SEE COMMENTS; Start 12/17/17 at 22:00 Ibuprofen (Motrin) 600 mg ONCE ONCE PO Last administered on 12/18/17at 22:37; Start 12/18/17 at 22:45; Stop 12/18/17 at 22:46; Status DC Insulin Aspart (NovoLOG SUPPLEMENTAL SCALE) 1 ACHS SLIDING SCALE SQ Last administered on 12/21/17 20:28; Start 12/18/17 at 08:00 Insulin Detemir (Levemir Inj) 10 units DAILYAC SQ Last administered on at 08:00; Start 12/19/17 at 08:00 Lactulose (Lactulose Liq) 30 ml DAILY PRN PO SEVERE CONSITIPATION Last administered on 12/21/17at 07:37; Start 12/17/17 at 22:00 Levofloxacin/ Dextrose 150 ml @ 100 mls/hr Q24H IV Last administered on 19:54; Start 12/18/17 at 20:00 Levothyroxine Sodium (Synthroid) 100 mcg DAILY@0600 PO Last administered on 04:23; Start 12/18/17 at 06:00 Magnesium Hydroxide (Milk Of Magnesia Liq) 30 ml Q12H PRN PO Mild constipation Last administered on 12/20/17 17:28; Start 12/17/17 at 22:00 Metoclopramide HCl (Reglan Inj) 5 mg Q6H PRN IV PUSH NAUSEA OR VOMITING; Start 12/17/17 at 22:00 Metronidazole 100 ml @ 100 mls/hr ONCE ONCE IV Last administered on at 21:09; Start 12/17/17 at 19:00; Stop 12/17/17 at 19:59; Status DC Morphine Sulfate (Morphine Inj) 2 mg Q3H PRN IV PUSH Pain 6-10; Start 12/17/17 at 22:15 Pantoprazole Sodium (Protonix) 20 mg BID PO Last administered on 12/23/17at 08: 07; Start 12/18/17 at 09:00 Senna/Docusate Sodium (Reina-Colace) 1 tab BID PO Last administered on at 08:08; Start 12/18/17 at 09:00 Sennosides (Senokot) 17.2 mg Q12H PRN PO Moderate constipation; Start 12/17/17 at 22:00 Sodium Chloride (NS Flush) 2 ml BID IV FLUSH Last administered on 12/23/17at 08: 07; Start 12/18/17 at 09:00 A/P Problem List: (1) Sepsis ICD Code: A41.9 - Sepsis, unspecified organism (2) UTI (urinary tract infection) ICD Code: N39.0 - Urinary tract infection, site not specified (3) ANTONETTE (acute kidney injury) ICD Code: N17.9 - Acute kidney failure, unspecified (4) DM (diabetes mellitus) ICD Code: E11.9 - Type 2 diabetes mellitus without complications Status: Acute Assessment and Plan A/P 1. Sepsis due to pyelonephritis-clinically improving. continue with Levaquin; will switch to po- 2. bacteremia with e-coli- continue with levaquin as noted above-repeated blood cultures negative so far. 3. ANTONETTE: Creatinine 1.18, previously 0.77 on 01/23/17, IVF for hydration, monitor I/O. CK WNL. Stable 4. DM: Sliding scale w/ Accu-Cheks, hold Glipizide for now to avoid hypoglycemia as decreased PO intake. Ct lower dose of levemir and adjust accordingly DVT Prophylaxis: SCD/Teds Discharge Planning dc home today. see med list. f/u; pcp. d/w the patient. Matthew Peña MD Dec 23, 2017 08:42
[2017-12-23] MEDS ORDERED: LEVA500T33 PO (08:44)
--- NOTE | 2017-12-23 08:44 | HHI.DS ---
Discharge Summary Admission Date Dec 17, 2017 at 22:00 Discharge Date: Dec 23, 2017 Admitting Diagnosis Sepsis, UTI/Pyelonephritis (1) Sepsis ICD Code: A41.9 - Sepsis, unspecified organism Diagnosis: Principal (2) UTI (urinary tract infection) ICD Code: N39.0 - Urinary tract infection, site not specified Diagnosis: Principal (3) ANTONETTE (acute kidney injury) ICD Code: N17.9 - Acute kidney failure, unspecified Diagnosis: Principal (4) DM (diabetes mellitus) ICD Code: E11.9 - Type 2 diabetes mellitus without complications Diagnosis: Secondary Status: Acute Procedures none Brief History - From Admission This is a 67-year-old female with a PMH of HTN and DM who presents to ER with complaints of fever in addition to generalized weakness. Symptoms have been ongoing x1 day. Denies chest pain, cough, nausea, vomiting diarrhea or sick contacts. On arrival, BP 163/73, HR 117, O2 sat 95% on RA, Temp 102.8. WBC 3.9. Creatinine 1.18, previously 0.77 on 01/23/2017. Lactic Acid 2.1. BS 218. UA positive for UTI. CXR with no consolidation or effusion. CT Abdomen/Pelvis equivocal findings on the right with stranding around the right kidney and proximal right ureter, questionable calculus. Imaging discussed w/ Urology, no intervention needed at this time. S/p Blood Cultures, Levaquin/Flagyl in ER. CBC/BMP: 12/19/17 0454 12/19/17 0454 Imaging Last Impressions Chest X-Ray 12/17/17 0000 Signed Impressions: CONCLUSION: Minimal basilar atelectasis. No consolidation or significant effusion. Granulom a left lung base. Abdomen/Pelvis CT 12/17/17 0000 Signed Impressions: CONCLUSION: 1. Equivocal findings on the right with stranding around the right kidney and proximal right ureter and questionable calculus in the distal right ureter. Dif ferential diagnosis would also include a right-sided pyelonephritis in patient with history of fever. No left-sided obstructive uropathy or significant perine phric stranding. 2. Mild constipation. 3. Fatty liver. 4. Calcified granulomata in the liver and spleen. PE at Discharge GENERAL: This is a well-nourished, well-developed patient, in no apparent distress. CARDIOVASCULAR: Regular rate and regular rhythm without murmurs, gallops, or rubs. RESPIRATORY: Clear to auscultation. Breath sounds equal bilaterally. No wheezes , rales, or rhonchi. GASTROINTESTINAL: Abdomen soft, non-tender, nondistended. Normal, active bowel sounds MUSCULOSKELETAL: Extremities without clubbing, cyanosis, or edema. NEURO: Alert & Oriented x4 to person, place, time, situation. Moves all ext x4 Hospital Course 1. Sepsis due to pyelonephritis-clinically improving. continue with Levaquin; will switch to po- 2. bacteremia with e-coli- continue with levaquin as noted above-repeated blood cultures negative so far. 3. ANTONETTE: Creatinine 1.18, previously 0.77 on 01/23/17, IVF for hydration, monitor I/O. CK WNL. Stable 4. DM: Sliding scale w/ Accu-Cheks, hold Glipizide for now to avoid hypoglycemia as decreased PO intake. Ct lower dose of levemir and adjust accordingly DVT Prophylaxis: SCD/Teds Pt Condition on Discharge: Good Discharge Disposition: Discharge Home Discharge Time: <= 30 minutes Discharge Instructions DIET: Follow Instructions for: Heart Healthy Diet, Diabetic Diet Activities you can perform: Regular-No Restrictions Matthew Peña MD Dec 23, 2017 08:44
== END 2017-12-23 10:58 | disposition home or self-care (01) | DRG 872 ==
LOC: NEPE 17:36 → NEDA 22:00 → N07A 23:39
PROVIDERS: ADMIT Internal Medicine; ATTEND Internal Medicine
DX: A41.9 Sepsis, unspecified organism (principal); N17.9 Acute kidney failure, unspecified; N12 Tubulo-interstitial nephritis, not specified as acute or chronic; E11.9 Type 2 diabetes mellitus without complications; I10 Essential (primary) hypertension; B96.20 Unspecified Escherichia coli [E. coli] as the cause of diseases classified elsewhere; K76.0 Fatty (change of) liver, not elsewhere classified; N39.0 Urinary tract infection, site not specified; D64.9 Anemia, unspecified; Z91.041 Radiographic dye allergy status; R53.1 Weakness; K59.00 Constipation, unspecified; E89.0 Postprocedural hypothyroidism; Z79.82 Long term (current) use of aspirin; Z79.4 Long term (current) use of insulin
CPT/HCPCS: 71045; 74176; 80048; 80053; 81001; 82272; 82550; 82948; 83605; 83735; 85025; 87040; 87077; 87086; 87186; 87205; 96365; 96366; 96367; J1815; J1956; J7030